=== PATIENT | male | born 1970 | race Caucasian/White ===

== ENCOUNTER 2017-12-27 13:55 | Emergency (ER) | payer MEDICAID, SELFPAY | END 2017-12-27 14:34 | disposition home or self-care (01) | LOC: ER 15:10 | PROVIDERS: Emergency Provider Emergency Medicine; PCP Nurse Practitioner Family | DX: S61.412A Laceration without foreign body of left hand, initial encounter (principal); W26.0XXA Contact with knife, initial encounter; Y93.G1 Activity, food preparation and clean up; Z53.29 Procedure and treatment not carried out because of patient's decision for other reasons | CPT/HCPCS: 99281 ==

== ENCOUNTER 2018-02-11 11:09 | Emergency (ER) | payer MEDICAID, SELFPAY ==
[2018-02-11 11:11] VITALS: BP 123/74; PULSE 72; RESP 14; TEMP 37; O2SAT 94
--- NOTE | 2018-02-11 12:01 | ED.GENADUL_ITS ---
Discharge Plan Disposition Patient Disposition: HOME Condition: Stable Discharge Details Chief Complaint: Nk/Back Pain Clinical Impression: Muscular torticollis, Viral pharyngitis Primary Care Provider: Leah Lyman ED Provider: Peter Brown Home Meds and New Rx's Prescriptions: New cyclobenzaprine 10 mg tablet 10 mg PO TID Qty: 12 RF: 0 Continue methadone 10 MG/ML concentrate 20 mg PO DAILY RF: 0 amitriptyline 25 MG tablet 50 mg PO HS RF: 0 Discharge Instructions Instructions: Pharyngitis (ED), Spasmodic Torticollis (ED) Additional Instructions: Feel free to return to the emergency department for any new or worsening otherwise follow-up with your primary care provider if not improving over the next week. He may continue to use [id number] ibuprofen 600 mg every 6 hours as needed for pain control. Stand Alone Forms: Work Release Referrals: Leah Lyman [Primary Care Provider] - (if not improving in 1 week) Discharge Data Discharge Date/Time-TO BE ENTERED AT DEPARTURE: 02/11/18 12:20 Medical Decision Making Patient presenting to the emergency department for chief complaint of right- sided neck pain that is been going on for the last 3 weeks. Patient states that he woke up one morning and had neck stiffness. Patient does state that a while ago he did have cold-like symptoms which fully resolved except for a mild lingering sore throat. Patient denies any fever chills or other symptoms. Patient is stable with mild erythematous posterior pharynx, and findings consistent with torticollis of the right side. 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 Patient has no midline vertebral tenderness no step-off no other acute traumatic findings. I feel that this is more likely traumatic torticollis and post viral pharyngitis. Patient recommended to take 600 mg of ibuprofen every 6 hours as needed for pain control and prescribed Flexeril as needed for muscular spasm or tension. Patient to follow-up with primary care if not improved in the next week HPI General Mode of arrival: ambulatory . Date/Time Provider Initiated Documentation: 02/11/18 11:33 . Limitations to Documentation: no limitations . Information obtained by: patient . History of Present Illness 47 year old M presents to the emergency department with the chief complaint of right sided neck pain, described as moderate, with intensity rated at 6. Quality is described as aching and sharp, and is localized to the right. Patient extremity (right shoulder). Patient started experiencing this week(s) (3) and it has been other (Waxing and waning). No relieving factors improve symptom(s), Patient notes no other symptoms.. Patient did receive the following treatments prior to arrival, NSAID Related Data Home Medications Medication Instructions Recorded Confirmed methadone 20 mg PO DAILY 07/07/15 02/11/18 amitriptyline 50 mg PO HS 10/31/17 02/11/18 cyclobenzaprine 10 mg PO TID #12 tab 02/11/18 Previous Rx's Medication Instructions Recorded cyclobenzaprine 10 mg PO TID #12 tab 02/11/18 Allergies Allergy/AdvReac Type Severity Reaction Status Date / Time codeine Allergy Skin Rash Unverified 02/11/18 11:16 General Stated Complaint: Nk/Back Pain ADALBERTO: 4 Review of Systems Constitutional Denies chills, Denies fever(s) and Denies headache(s) Eyes Denies change in vision ENT Denies headache(s), Reports neck pain and Reports sore throat Cardiovascular Denies chest pain and Denies dyspnea Respiratory Denies dyspnea Musculoskeletal Reports as per HPI, Denies back pain and Reports neck pain Neurologic Denies headache(s) [facility] Medical History Hepatitis C (Chronic) Kidney stones (Chronic) Social History Smoking/Tobacco Use Status: Current every day Exam Const General: cooperative, healthy appearing and no acute distress Orientation: alert, awake and oriented x3 HENMT Head: normal to inspection, no palpable skull fracture, normocephalic and atraumatic Ears: hearing grossly normal bilaterally Mouth: oral mucosae normal Throat: posterior oropharynx normal and tonsils normal Eyes General: appearance normal, both eyes and all related structures Pupils: PERRL Neck Neck: full ROM, no lymphadenopathy, no meningeal signs, trachea midline, supple , no anterior neck swelling and torticollis (right) Carotids: normal carotid upstroke and no bruits Lymphatic: no lymphadenopathy noted Resp Effort & Inspection: normal respiratory effort and able to speak in complete sentences Auscultation: clear to auscultation bilaterally Cardio Jugular venous pressure: no JVD Rate: regular rate Rhythm: regular rhythm Heart Sounds: S1 normal and S2 normal Back/Spine/Pelvis Cervical Spine: normal cervical lordosis, cervical ROM normal, cervical muscular tenderness (right), pain with cervical ROM, No cervical spasm, No cervical spinal tenderness and No step off deformity Neuro General: alert, awake, oriented x3, gait normal, tone normal, moves all extremities, no meningeal signs, no focal motor deficits and CN's II-XI intact bilaterally Course Vital Signs Temperature 37.0 C 02/11/18 11:11 Pulse 72 02/11/18 11:11 Respiratory Rate 14 02/11/18 11:11 Blood Pressure 123/74 02/11/18 11:11 Pulse Oximetry 94 L 02/11/18 11:11 Temperature 37.0 C 02/11/18 11:11 Temperature Source Temporal Artery Scan 02/11/18 11:11 Pulse 72 02/11/18 11:11 Respiratory Rate 14 02/11/18 11:11 Respiratory Effort Non-Labored 02/11/18 11:14 Blood Pressure 123/74 02/11/18 11:11 Blood Pressure Position Sitting 02/11/18 11:11 Pulse Oximetry 94 L 02/11/18 11:11 Oxygen Delivery Method Room Air 02/11/18 11:11 Oxygen Flow Rate 0 02/11/18 11:11 Pain Level 4 02/11/18 11:15
== END 2018-02-11 12:20 | disposition home or self-care (01) ==
PROVIDERS: Emergency Provider Nurse Practitioner Family; PCP Nurse Practitioner Family
DX: G24.3 Spasmodic torticollis (principal); J02.8 Acute pharyngitis due to other specified organisms
CPT/HCPCS: 99283

== ENCOUNTER 2018-03-23 09:39 | Outpatient (REF) | payer MEDICAID, SELFPAY ==
[2018-03-26 15:10] LABS: Testosterone, Free 0.91 ng/dL (4.26-16.4); Testosterone, Total 65 ng/dL (240-950)
== END 2018-03-23 09:59 ==
LOC: NCHCN 09:39
PROVIDERS: PCP Nurse Practitioner Family; Visit Provider Nurse Practitioner Family
DX: E29.1 Testicular hypofunction (principal)
CPT/HCPCS: 84402; 84403

== ENCOUNTER 2018-04-23 13:19 | Emergency (ER) | payer MEDICAID, SELFPAY ==
[2018-04-23 13:38] VITALS: BP 117/67; PULSE 80; RESP 16; TEMP 36.8; O2SAT 95
[2018-04-23] MEDS: Lidocaine 5% Patch 1 PATCH TP (14:34)
[2018-04-23] MEDS: Ibuprofen 600 MG TAB PO (14:34)
[2018-04-23] MEDS: Acetaminophen 500 MG TAB 1000 MG PO (14:34)
--- NOTE | 2018-04-23 14:42 | ED.GENADUL_ITS ---
Discharge Plan Disposition Patient Disposition: HOME Condition: Stable Discharge Details Chief Complaint: Orthopedic Clinical Impression: Strain of right quadriceps muscle Primary Care Provider: Leah Lyman ED Provider: Peter Brown Home Meds and New Rx's Prescriptions: Continued methadone 10 MG/ML concentrate 30 mg PO DAILY RF: 0 testosterone cypionate 200 mg/mL Kit 200 mg IM Q2W RF: 0 amitriptyline 25 MG tablet 50 mg PO HS RF: 0 Discharge Instructions Instructions: Muscle Strain (ED) Additional Instructions: Rest over the next couple days and slowly advance activity as tolerated. You may continue to use acetaminophen 1000 mg along with ibuprofen 600 mg every 6 hours as needed for pain. If lidocaine patch is effective you may also utilize [id number] lidocaine patch just use as directed on package. Feel free to return to the emergency department for any new or significant worsening of symptoms. Stand Alone Forms: Work Release Referrals: Leah Lyman [Primary Care Provider] - (As needed for reassessment if not improving over the 2 weeks) Discharge Data Discharge Date/Time-TO BE ENTERED AT DEPARTURE: 04/23/18 14:49 Medical Decision Making Patient presenting to the emergency department for chief complaint of right leg pain. Patient states that yesterday evening and throughout the day he has noted significant discomfort to his right thigh. Patient initially denies any injury or trauma but then states prior to noticing the discomfort he had a near fall which he caught himself and did kind of leaning towards the right during the fall. Physical exam is positive for muscular/soft tissue tenderness to the lateral proximal aspect of the right thigh but no bony tenderness, patient is full weightbearing, normal range of motion, no other abnormalities noted. Given this I feel that patient may have strained the right quadricep causing discomfort. In the emergency department patient was given lidocaine patch, acetaminophen, ibuprofen. patient was encouraged to rest the extremity and perform activity as tolerated and take [id number] pain medication as needed. Patient to return for any new or worsening symptoms otherwise to follow-up as needed. After discussion of diagnosis and plan of care patient has no further needs, questions, or concerns and states clear understanding to return to the emergency department for any worsening symptoms. HPI General Mode of arrival: ambulatory . Date/Time Provider Initiated Documentation: 04/23/18 13:31 . Limitations to Documentation: no limitations . Information obtained by: patient and RN notes reviewed . History of Present Illness 48 year old M presents to the emergency department with the chief complaint of Right thigh pain, described as moderate, with intensity rated at 6. Quality is described as aching, and is localized to the right and lower extremity. Patient started experiencing this day(s) (1) and it has been constant. No relieving factors improve symptom(s), Movement worsens symptoms . Patient notes no other symptoms.. Patient did receive the following treatments prior to arrival, none Related Data Home Medications Medication Instructions Recorded Confirmed methadone 30 mg PO DAILY 07/07/15 04/23/18 amitriptyline 50 mg PO HS 10/31/17 04/23/18 testosterone cypionate 200 mg IM Q2W 04/23/18 04/23/18 Allergies Allergy/AdvReac Type Severity Reaction Status Date / Time codeine Allergy Skin Rash Unverified 04/23/18 13:43 General Stated Complaint: Orthopedic ADALBERTO: 4 Review of Systems Constitutional Denies body ache(s), Denies chills and Denies fever(s) Cardiovascular Denies chest pain and Denies dyspnea Respiratory Denies dyspnea Gastrointestinal Denies abdominal pain, Denies nausea and Denies vomiting Musculoskeletal Reports as per HPI, Reports myalgias (Right upper thigh), Denies limited range of motion, Denies stiffness and Denies tingling Integumentary/Breasts Denies rash Neurologic Denies sensory deficit and Denies tingling PFSH Medical History Hepatitis C (Chronic) Kidney stones (Chronic) Social History Smoking/Tobacco Use Status: Current every day Exam Const General: cooperative, no acute distress and not ill appearing Orientation: alert, awake and oriented x3 HENMT Mouth: moist mucous membranes Resp Effort & Inspection: normal respiratory effort, able to speak in complete sentences and no respiratory distress Cardio Rate: regular rate Rhythm: regular rhythm Skin General skin exam: no rashes or lesions noted Neuro General: alert, awake, oriented x3, moves all extremities and no focal motor deficits Sensory Exam: no sensory deficits noted Extrem General: normal exam except as noted Right lower extremity: full ROM, normal capillary refill, hip/thigh Details: tenderness Location: of the proximal upper leg Location: laterally and normal ROM; no swelling, no ecchymosis and no crepitus and knee Details: normal to inspection; no edema Course Vital Signs Temperature 36.8 C 04/23/18 13:38 Pulse 80 04/23/18 13:38 Respiratory Rate 16 04/23/18 13:38 Blood Pressure 117/67 04/23/18 13:38 Pulse Oximetry 95 04/23/18 13:38 Temperature 36.8 C 04/23/18 13:38 Temperature Source Skin 04/23/18 13:38 Pulse 80 04/23/18 13:38 Respiratory Rate 16 04/23/18 13:38 Respiratory Effort 04/23/18 13:42 Blood Pressure 117/67 04/23/18 13:38 Blood Pressure Position Sitting 04/23/18 13:38 Pulse Oximetry 95 04/23/18 13:38 Oxygen Delivery Method Room Air 04/23/18 13:38 Oxygen Flow Rate 0 04/23/18 13:38 Pain Level 4 04/23/18 14:34
== END 2018-04-23 14:49 | disposition home or self-care (01) ==
PROVIDERS: Emergency Provider Nurse Practitioner Family; PCP Nurse Practitioner Family
DX: S76.111A Strain of right quadriceps muscle, fascia and tendon, initial encounter (principal); X50.9XXA Other and unspecified overexertion or strenuous movements or postures, initial encounter
CPT/HCPCS: 99282

== ENCOUNTER 2018-05-07 07:50 | Outpatient (REF) | payer MEDICAID, SELFPAY ==
[2018-05-10 17:45] LABS: Testosterone, Free 20.7 ng/dL (4.26-16.4); Testosterone, Total 739 ng/dL (240-950)
== END 2018-05-07 08:10 ==
LOC: NCHCN 07:50
PROVIDERS: PCP Nurse Practitioner Family; Visit Provider Nurse Practitioner Family
DX: E29.1 Testicular hypofunction (principal)
CPT/HCPCS: 84402; 84403

== ENCOUNTER 2018-09-19 09:45 | Emergency (ER) | payer MEDICAID, SELFPAY ==
[2018-09-19 09:50] VITALS: BP 133/84; PULSE 75; RESP 16; TEMP 37.1; O2SAT 94
--- NOTE | 2018-09-19 09:56 | ED.GENADUL_ITS ---
Discharge Plan Disposition Patient Disposition: HOME Discharge Details Chief Complaint: Abd Prob Clinical Impression: Abdominal pain, acute, right upper quadrant, Bilirubin in urine Primary Care Provider: Leah Lyman ED Provider: Geovany Lovett Home Meds and New Rx's Prescriptions: New naloxone 4 mg/actuation spray,non-aerosol 1 spray NGOZI ONCE PRN (Reason: overdose) Qty: 2 RF: 0 Continued methadone 10 MG/ML concentrate 30 mg PO DAILY RF: 0 testosterone cypionate 200 mg/mL Kit 200 mg IM Q2W RF: 0 amitriptyline 25 MG tablet 50 mg PO HS RF: 0 Discharge Instructions Additional Instructions: Please contact your primary care physician or community connections to establish a new primary care physician. You may need additional diagnostic testing and certainly need treatment for your hepatitis C. Please stop using opioids. Return to the ER for any worsening or new concerning symptoms. Stand Alone Forms: Work Release Referrals: Leah Lyman [Primary Care Provider] - Medical Decision Making 10:34 --48-year-old male IV drug user with history of hepatitis C here with right lateral lower chest and upper abdominal pain, worse with inspiration, since this morning with associated dark-colored urine. Bedside afplo-wg-[id number] ultrasound performed by me and reveals hepatomegaly. No gallstones seen. Plan to obtain official abdominal ultrasound. We will check LFTs and lipase. Consider pulmonary embolism. Patient has no calf tenderness. He is not tachycardic. He saturating 94 to 95% with no SOB. Patient is low risk by Wells criteria. Plan to check a d-dimer. 12:15 --labs reviewed and nondiagnostic. Of note, patient does have some ketones and small bilirubin in his urine. No anion gap. Glucose only mildly elevated at 112. AST mildly elevated at 43. Total bilirubin normal, ALT normal, alk phos normal. D-dimer within normal limit. Chest x-ray interpreted by radiology: Impression: No acute findings Ultrasound of the abdomen interpreted by radiology: Impression: Hepatomegaly 17.8 cm. Patient reassessed and has remained stable here. Plan is to have him follow-up with primary care physician. He is interested in establishing primary care with a new PCP. I will put him on care management list. Patient should have timely follow-up arranged for referral and discussion for potential treatment of chronic hepatitis C. He is interested in pursuing treatment as soon as possible. Patient was encouraged to not use illicit substances. We discussed the risks of using opioids. I provided a prescription for naloxone. We discussed the importance of timely follow-up and need to return immediately for worsening or new concerning symptoms. HPI General Date/Time Provider Initiated Documentation: 09/19/18 09:50 . HPI Narrative: 48-year-old male with history of hepatitis C, IV drug use, here with chief complaint of abdominal pain. Patient notes pain started this morning. Pain started suddenly. Pain feels sore and at times sharp. Pain is localized to his right upper abdomen and under his right lower ribs. Pain is worse with deep inspiration. No associated shortness of breath. No associated nausea or vomiting. He does note that this morning he had some very dark red-colored urine. He has never had this before. He has noticed recently bilateral distal leg swelling. No calf pain. No calf swelling. Patient does state that he used IV heroin yesterday. He does not believe he lost consciousness for any significant period of time. No trauma. Related Data Home Medications Medication Instructions Recorded Confirmed methadone 30 mg PO DAILY 07/07/15 09/19/18 amitriptyline 50 mg PO HS 10/31/17 09/19/18 testosterone cypionate 200 mg IM Q2W 04/23/18 09/19/18 naloxone 1 spray NGOZI ONCE PRN #2 each 09/19/18 Previous Rx's Medication Instructions Recorded naloxone 1 spray NGOZI ONCE PRN #2 each 09/19/18 Allergies Allergy/AdvReac Type Severity Reaction Status Date / Time codeine Allergy Skin Rash Unverified 09/19/18 09:52 General Stated Complaint: Abd Prob ADALBERTO: 3 Review of Systems Review of Systems All systems reviewed & are unremarkable except as noted in HPI and below PFSH Medical History Hepatitis C (Chronic) Kidney stones (Chronic) Social History Smoking/Tobacco Use Status: Current every day Tobacco Type: cigarettes Alcohol Intake: current Alcohol Intake frequency: a few times a week Drug use: Daily Substance use type: marijuana Do you feel safe in your relationship?: Yes Exam Const General: cooperative and no acute distress HENMT Head: normocephalic Mouth: moist mucous membranes Eyes Conjunctivae: normal conjunctivae Sclera: normal sclerae Neck Neck: trachea midline and supple Resp Auscultation: clear to auscultation bilaterally, no rales, no rhonchi and no wheezes Cardio Jugular venous pressure: no JVD Rate: regular rate and not tachycardic Rhythm: regular rhythm GI Palpation: soft, not firm, no guarding, no masses, not rigid and nontender Skin General skin exam: no rashes or lesions noted Neuro General: alert, awake and tone normal Extrem General: no calf tenderness bilaterally and edema Laterality: bilateral (Trace about the ankles) Psych Appearance: grossly normal Mental Status: mental status grossly normal Course Vital Signs Temperature 37.1 C 09/19/18 09:50 Pulse 75 09/19/18 09:50 Respiratory Rate 16 09/19/18 09:50 Blood Pressure 133/84 09/19/18 09:50 Pulse Oximetry 92 L 09/19/18 09:50 Temperature 37.1 C 09/19/18 09:50 Temperature Source Skin 09/19/18 09:50 Pulse 75 09/19/18 09:50 Respiratory Rate 16 09/19/18 09:50 Respiratory Effort Non-Labored 09/19/18 09:54 Blood Pressure 133/84 09/19/18 09:50 Pulse Oximetry 92 L 09/19/18 09:50 Pain Level 9 09/19/18 09:50
[2018-09-19 10:20] LABS: Bilirubin Small (Negative); Blood Negative (Negative); Clarity Clear; Glucose Negative (Negative); Ketones 40 mg/dL (Negative); Leukocyte Esterase Negative (Negative); Specific Gravity >= 1.030 (1.005-1.025)
--- NOTE | 2018-09-19 10:22 | DI.US_ITS ---
SYMPTOMS/DIAGNOSIS: RUQ ABD PAIN, HEP C ABDOMINAL ULTRASOUND: Routine examination was performed. The proximal and mid aorta are of normal caliber. The distal aorta can not be seen due to overlying bowel. The inferior vena cava is unremarkable. The liver measures 17.8 cm. No hepatic mass is seen. The gallbladder, common duct and pancreas are unremarkable. The spleen measures 12 cm and is otherwise unremarkable. The kidneys are unremarkable. There is antegrade flow in the portal vein. IMPRESSION: Hepatomegaly. No evidence of cholelithiasis or biliary ductal dilatation.
[2018-09-19 10:23] LABS: Nitrite Negative (Negative)
[2018-09-19 10:33] LABS: Bacteria Negative HPF (Negative); C & S Indicated? No; Casts Negative LPF (Negative); Crystals Negative HPF (Negative); Epithelial Cells Few HPF (Negative); Mucus Heavy (Negative); RBC 0-2 (0-2); WBC 0-2 HPF (0-5)
[2018-09-19 10:42] LABS: Abs Immature Grans 0.01 k/cumm (0.0-0.09); Absolute Basophil Count 0.02 k/cumm (0.0-0.2); Absolute Eosinophil Count 0.16 k/cumm (0.0-0.7); Absolute Lymphocyte Count 1.04 k/cumm (1.2-3.4); Absolute Monocyte Count 0.44 k/cumm (0.11-0.7); Absolute Neutrophil Count 4.89 k/cumm (1.2-6.7); Basophils % 0.3; Eosinophils % 2.4; HCT 49.8 % (40.0-50.0); HGB 16.2 g/dL (13.5-17.5); Immature Grans % 0.2; Lymphocytes % 15.9; Mean Corp. HGB Concentration 32.5 g/dL (32.0-36.0); Mean Corpuscular Hemoglobin 29.2 pg (27.0-33.0); Mean Corpuscular Volume 89.7 fL (80-95); Mean Platelet Volume 8.9 fL (8.0-11.0); Monocytes % 6.7; Neutrophils % 74.5; Platelet Count 310 x1000/uL (130-400); RBC 5.55 m/cumm (4.50-6.00); RBC Distribution Width 16.2 % (11.8-14.1); White Blood Cell Count 6.56 k/cumm (4.4-10.8)
[2018-09-19] MEDS: Lactated Ringers 1,000 ML 125 ML IV (10:42)
[2018-09-19 11:01] LABS: ALT 48 U/L (12-78); AST 43 U/L (15-37); Albumin 3.7 g/dL (3.4-5.0); Alkaline Phosphatase 67 U/L (46-116); Anion Gap 7.7 mmol/L (3-11); BUN 13 mg/dL (7-18); Bilirubin, Total 0.9 mg/dL (0.2-1.0); CO2 28.3 mmol/L (21.0-32.0); CREATININE 1.17 mg/dL (0.70-1.30); Chloride 102 mmol/L (98-107); Glucose 112 mg/dL (70-100); Lipase 110 U/L (73-393); Potassium 4.3 mmol/L (3.5-5.1); Sodium 138 mmol/L (136-145); Total Protein 7.7 g/dL (6.4-8.2)
--- NOTE | 2018-09-19 11:12 | DI.RAD_ITS ---
SYMPTOMS/DIAGNOSIS: PAIN RT SUBCOSTAL PA AND LATERAL CHEST: Comparison 10/23/04. The heart is normal in size. The lungs are clear. The mediastinal structures and pleura appear intact. CONCLUSION: Normal chest.
--- NOTE | 2018-09-19 11:42 | DI.VRAD_ITS ---
EXAM: XR Chest, 2 Views EXAM DATE/TIME: 09/19/2018 10:26 AM CLINICAL HISTORY: 48 years old, male; Other: RT sub costal pain. TECHNIQUE: Imaging protocol: XR of the chest, 2 views. COMPARISON: No relevant prior studies available. FINDINGS: Lungs: Unremarkable. No consolidation. Pleural space: Unremarkable. No pleural effusion. No pneumothorax. Heart/Mediastinum: Unremarkable. No cardiomegaly. Bones/joints: Unremarkable. IMPRESSION: No acute findings. Dictated and Authenticated by: Codie Miller MD. Ordering:MARIA LUISA Armenta MD
--- NOTE | 2018-09-19 11:44 | DI.VRAD_ITS ---
EXAM: US Abdomen Complete EXAM DATE/TIME: 09/19/2018 11:11 AM CLINICAL HISTORY: 48 years old, male; Signs and symptoms; Other: Ruq pain TECHNIQUE: Imaging protocol: Real-time ultrasound of the abdomen with image documentation. COMPARISON: No relevant prior studies available. FINDINGS: Liver: Hepatomegaly 17.8 cm. Gallbladder: Gallbladder wall 1.8 mm. No gallstones Common bile duct: Common bile duct measures 5.8 mm Pancreas: Visualized pancreas is unremarkable. Right kidney: Right kidney 11.5 cm. No hydronephrosis. Left kidney: Left kidney 12.1 cm. No hydronephrosis Spleen: Spleen 12 cm. Aorta: Proximal aorta 2.8 cm. Mid aorta 2.4 cm Inferior vena cava: Normal IVC Portal venous: Antegrade flow in the portal vein IMPRESSION: Hepatomegaly 17.8 cm. Dictated and Authenticated by: Codie Miller MD. Ordering:MARIA LUISA Armenta MD
[2018-09-19 11:52] LABS: D-Dimer 297 ng/mlFEU (<500)
[2018-09-19 12:36] VITALS: PULSE 74; RESP 16; TEMP 37.4; O2SAT 98
== END 2018-09-19 12:38 | disposition home or self-care (01) ==
PROVIDERS: Emergency Provider Student in an Organized Health Care Education/Training Program; PCP Nurse Practitioner Family
DX: R10.11 Right upper quadrant pain (principal); R16.0 Hepatomegaly, not elsewhere classified; R82.2 Biliuria; Z86.19 Personal history of other infectious and parasitic diseases
CPT/HCPCS: 80053; 83690; 99285; 71046; 76700; 81003; 81015; 85025; 85379

== ENCOUNTER 2018-09-26 08:10 | Emergency (ER) | payer MEDICAID, SELFPAY ==
[2018-09-26 08:19] VITALS: BP 145/88; PULSE 69; RESP 16; TEMP 37.1; O2SAT 93
--- NOTE | 2018-09-26 08:51 | DI.RAD_ITS ---
SYMPTOM/DIAGNOSIS: CHRONIC RIB PAIN, COUGH, ? FX PA AND LATERAL CHEST AND RIGHT RIBS: PA and lateral views of the chest and additional rib films were obtained. The heart is not enlarged and the lungs are clear and well expanded. No rib fracture identified.
--- NOTE | 2018-09-26 08:52 | W.ED.GENAD ---
Discharge Plan Disposition Patient Disposition: HOME Condition: Stable Discharge Details Chief Complaint: Chest/Rib Clinical Impression: Chest wall muscle strain, Rib pain on right side Primary Care Provider: Leah Lyman ED Provider: Lorrie Hand Home Meds and New Rx's Prescriptions: Continued methadone 10 MG/ML concentrate 30 mg PO DAILY RF: 0 testosterone cypionate 200 mg/mL Kit 200 mg IM Q2W RF: 0 amitriptyline 25 MG tablet 50 mg PO HS RF: 0 naloxone 4 mg/actuation spray,non-aerosol 1 spray NGOZI ONCE PRN (Reason: overdose) Qty: 2 RF: 0 Discharge Instructions Instructions: Muscle Strain (ED), Chest Wall Pain (ED) Additional Instructions: Alternate Tylenol and Motrin as needed directed for pain. Alternate ice and heat to the affected area several times daily for 20 minutes at a time. Follow-up with your primary care doctor next week for reevaluation. Return to the emergency department with any worsening or new concerning symptoms such as difficulty breathing, chest pain, abdominal pain or any other concerns. Stand Alone Forms: Work Release Discharge Data Discharge Physician: Lorrie Hand Medical Decision Making 48yo M w/ a h/o methadone use and occasional IV drug user who presents w/ a c/o R inferolateral rib pain x 1 week. States the pain is worse with palpation and any movement. Denies known injury, chest pain, sob, abdominal pain, fever or persistent vomiting. He states he is here today to determine if he has a rib fracture as he felt a crunching sensation in his R lower rib when turning and getting out of bed today. Admits to frequent heavy pushing and pulling at work yesterday. Pt was seen here last week for RUQ abd pain and had negative labs, RUQ US and CXR. Vitals within normal limits. Afebrile. Patient appears nontoxic. Lungs clear to auscultation. Abdomen soft nontender. He has a localized area of tenderness to the right lateral inferior ribs. No evidence of rash, trauma or infection. Differential diagnosis most likely rib strain or sprain, but can also include possible rib fracture due to chronic coughing due to chronic tobacco smoking. Suspect his symptoms worse today due to frequent pushing and pulling of carts at work yesterday. Denies tearing sensation or difficulty breathing so not c/w dissection or PE. PERC negative. Patient took Advil 1 hour ago. Will give a dose of Tylenol and send for right ribs and PA/lateral chest x-ray. 1020 --x-ray reviewed and negative for acute findings. Patient texting on phone leaning over on bed and appears in no acute distress. Patient is requesting work note for the next few days. Patient instructed to follow-up with his primary care doctor next week for reevaluation. He is instructed to return here with any worsening or new concerning symptoms such as difficulty breathing, chest pain, abdominal pain. Medical Records Medical records reviewed: Yes I reviewed the patient's medical records. Imaging Data Radiologic Study: Radiologist's impression: XR Right Ribs EXAM DATE/TIME: 09/26/2018 8:52 AM CLINICAL HISTORY: 48 years old, male; Signs and symptoms; Other: Pkwvbk2t rib coughing, R/O acute FX R lower ribs; Painful respiration TECHNIQUE: Imaging protocol: XR Right ribs. Views: 2 views. COMPARISON: CR XR CHEST 2V PA LATERAL 09/19/2018 11:11 AM FINDINGS: Bones/joints: Normal. Soft tissues: Normal. Other findings: No acute findings. IMPRESSION: No acute findings. XR Chest, 2 Views EXAM DATE/TIME: 09/26/2018 8:52 AM CLINICAL HISTORY: 48 years old, male; Signs and symptoms; Other: Rozmea8c rib coughing, R/O acute FX R lower ribs; Painful respiration TECHNIQUE: Imaging protocol: XR of the chest, 2 views. COMPARISON: CR XR CHEST 2V PA LATERAL 09/19/2018 11:11 AM FINDINGS: Lungs: Moderately hyperaerated lungs consistent with deep inspiratory effort vs significant reactive airway disease vs moderate COPD . Pleural space: Unremarkable. No pleural effusion. No pneumothorax. Heart/Mediastinum: Unremarkable. No cardiomegaly. Bones/joints: Thoracolumbar dextroscoliosis. Mild thoracic spondylosis. IMPRESSION: Moderately hyperaerated lungs consistent with deep inspiratory effort vs significant reactive airway disease vs moderate COPD . HPI General Mode of arrival: ambulatory. Date/Time Provider Initiated Documentation: 09/26/18 08:22. Limitations to Documentation: no limitations. Information obtained by: patient. HPI Narrative: Pt is a 48yo M who presents to the ED w/ a c/o R lateral lower rib pain for the past week. Pt was seen here 1 week ago for a complaint of right lower rib pain and right upper quadrant pain. Patient states he thought that he broke his rib last week but denies any known injury. Patient states he has a chronic cough that is associated with his chronic tobacco smoking. He states last week he was seen in the emergency department for his right lower rib and right upper quadrant abdominal pain and had lab work, ultrasound and x-ray and states he was poked and prodded and was told nothing was wrong with me. Patient states he wants to find out what is wrong with him as he woke up today and turned and got out of bed and felt something move and crunch and is concerned about a right lower rib fracture. He again denies any recent injury. 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 He denies any fever, anterior chest pain, shortness of breath, abdominal pain. Patient states he took 2 tabs of Advil this morning for pain. Patient states he works today and is requesting a work note. Related Data Home Medications Medication Instructions Recorded Confirmed methadone 30 mg PO DAILY 07/07/15 09/26/18 amitriptyline 50 mg PO HS 10/31/17 09/26/18 testosterone cypionate 200 mg IM Q2W 04/23/18 09/26/18 naloxone 1 spray NGOZI ONCE PRN #2 each 09/19/18 09/26/18 Previous Rx's Medication Instructions Recorded naloxone 1 spray NGOZI ONCE PRN #2 each 09/19/18 Allergies Allergy/AdvReac Type Severity Reaction Status Date / Time codeine Allergy Skin Rash Unverified 09/26/18 08:23 General Stated Complaint: Chest/Rib ADALBERTO: 4 Review of Systems Review of Systems All systems reviewed & are unremarkable except as noted in HPI and below Constitutional Reports as per HPI, Denies chills and Denies fever(s) Eyes Denies blurry vision ENT Denies dizziness, Denies sore throat and Denies throat swelling Cardiovascular Denies chest pain and Denies dyspnea Respiratory Denies cough and Denies dyspnea Gastrointestinal Denies abdominal pain, Denies diarrhea and Denies vomiting Genitourinary Denies hematuria and Denies dysuria Musculoskeletal Denies back pain, Denies numbness and Reports other (R rib pain) Integumentary/Breasts Denies lesions and Denies rash Neurologic Denies dizziness, Denies focal weakness and Denies numbness Allergic/Immunologic Denies throat swelling [facility] Medical History Hepatitis C (Chronic) Kidney stones (Chronic) Surgical History Broken jaw (Acute) Social History Smoking/Tobacco Use Status: Current every day Tobacco Type: cigarettes Alcohol Intake: current Alcohol Intake frequency: a few times a week Drug use: Daily Substance use type: marijuana and other Details: occasional IV drug user - last use heroin 2 weeks ago Do you feel safe in your relationship?: Yes Exam Const General: cooperative, healthy appearing and no acute distress HENMT Head: normal to inspection Face and sinus: normal facial exam Eyes General: appearance normal, both eyes and all related structures EOM: EOM intact bilaterally Neck Neck: normal visual inspection and No submandibular swelling Lymphatic: no lymphadenopathy noted Chest Chest: normal inspection of the chest, no crepitus, tenderness (R anteriolateral inferior rib), No rash and other (no ecchymoses) Resp Effort & Inspection: normal respiratory effort and able to speak in complete sentences Auscultation: clear to auscultation bilaterally Cardio Rate: regular rate Rhythm: regular rhythm GI Inspection: normal to inspection and no abdominal wall ecchymosis Palpation: soft, not firm, not rigid and nontender Auscultation: normal bowel sounds Skin General skin exam: no rashes or lesions noted Neuro General: alert, awake and oriented x3 Cognition: normal cognition Speech: speech normal Motor: muscle tone normal throughout Sensory Exam: no sensory deficits noted Extrem General: normal to inspection, full ROM and no edema Psych Appearance: grossly normal Mental Status: mental status grossly normal Speech and Movement: speech and movement normal Affect: normal affect Course Vital Signs Temperature 98.8 F 09/26/18 08:19 Pulse 69 09/26/18 08:19 Respiratory Rate 16 09/26/18 08:19 Blood Pressure 145/88 H 09/26/18 08:19 Pulse Oximetry 93 L 09/26/18 08:19 Temperature 98.8 F 09/26/18 08:19 Pulse 69 09/26/18 08:19 Respiratory Rate 16 09/26/18 08:19 Respiratory Effort Non-Labored 09/26/18 08:19 Blood Pressure 145/88 H 09/26/18 08:19 Blood Pressure Position Sitting 09/26/18 08:19 Pulse Oximetry 93 L 09/26/18 08:19 Oxygen Delivery Method Room Air 09/26/18 08:19 Oxygen Flow Rate 0 09/26/18 08:19 Pain Level 5 09/26/18 08:19
[2018-09-26] MEDS: Acetaminophen 325 MG TAB 650 MG PO (09:00)
--- NOTE | 2018-09-26 09:59 | DI.VRAD_ITS ---
EXAM: XR Right Ribs EXAM DATE/TIME: 09/26/2018 8:52 AM CLINICAL HISTORY: 48 years old, male; Signs and symptoms; Other: Usftrm4i rib coughing, R/O acute FX R lower ribs; Painful respiration TECHNIQUE: Imaging protocol: XR Right ribs. Views: 2 views. COMPARISON: CR XR CHEST 2V PA LATERAL 09/19/2018 11:11 AM FINDINGS: Bones/joints: Normal. Soft tissues: Normal. Other findings: No acute findings. IMPRESSION: No acute findings. EXAM: XR Chest, 2 Views EXAM DATE/TIME: 09/26/2018 8:52 AM CLINICAL HISTORY: 48 years old, male; Signs and symptoms; Other: Fcbdow3i rib coughing, R/O acute FX R lower ribs; Painful respiration TECHNIQUE: Imaging protocol: XR of the chest, 2 views. COMPARISON: CR XR CHEST 2V PA LATERAL 09/19/2018 11:11 AM FINDINGS: Lungs: Moderately hyperaerated lungs consistent with deep inspiratory effort vs significant reactive airway disease vs moderate COPD . Pleural space: Unremarkable. No pleural effusion. No pneumothorax. Heart/Mediastinum: Unremarkable. No cardiomegaly. Bones/joints: Thoracolumbar dextroscoliosis. Mild thoracic spondylosis. IMPRESSION: Moderately hyperaerated lungs consistent with deep inspiratory effort vs significant reactive airway disease vs moderate COPD . Dictated and Authenticated by: Lee Hayden MD. Ordering:TIEN Andrew MD
[2018-09-26 10:40] VITALS: BP 141/82; PULSE 62; RESP 20; TEMP 36.8; O2SAT 96
== END 2018-09-26 10:44 | disposition home or self-care (01) ==
PROVIDERS: Emergency Provider Physician Assistant; PCP Nurse Practitioner Family
DX: S29.011A Strain of muscle and tendon of front wall of thorax, initial encounter (principal); R07.81 Pleurodynia; X58.XXXA Exposure to other specified factors, initial encounter; R05 Cough; F17.210 Nicotine dependence, cigarettes, uncomplicated
CPT/HCPCS: 99283; 71046; 71100; 99282

== ENCOUNTER 2020-03-01 10:25 | Emergency (ER) | payer MEDICAID, SELFPAY ==
[2020-03-01 10:29] VITALS: BP 124/88; PULSE 64; RESP 15; TEMP 37.4; O2SAT 98
--- NOTE | 2020-03-01 10:50 | ED.GENADUL_ITS ---
Discharge Plan Disposition Patient Disposition: HOME Condition: Stable Discharge Details Clinical Impression: Dental infection Primary Care Provider: Leah Lyman ED Provider: Nate Mcgee Home Meds and New Rx's Prescriptions: New amoxicillin 875 mg tablet 875 mg PO BID 10 Days Qty: 20 RF: 0 Continued methadone 10 MG/ML concentrate 30 mg PO DAILY RF: 0 testosterone cypionate 200 mg/mL Kit 200 mg IM Q2W RF: 0 amitriptyline 25 MG tablet 50 mg PO HS RF: 0 naloxone 4 mg/actuation spray,non-aerosol 1 spray NGOZI ONCE PRN (Reason: overdose) Qty: 2 RF: 0 Discharge Instructions Instructions: Dental Abscess (ED) Additional Instructions: Amoxicillin as directed. [id number] medication as directed for symptomatic control. Salt water swish, gargle, spit as tolerated. Cool and/or warm compresses every 2 hours for 20 minutes. Please watch for new or worsening symptoms and return to the ER for any concerns. Otherwise using the dentist list provided, I do recommend establishing outpatient dental care. Stand Alone Forms: Work Release Medical Decision Making 49-year-old gentleman, current smoker, poor dentition throughout, presents complaining of increased pain over the past 4 days. He is requesting antibiotics. He does not have a dentist. Clinically it appears as though he likely has a dental infection without obvious pointing abscess that requires I&D. He appears well, nontoxic, afebrile, protect his airway without difficulty. Will provide amoxicillin 875 twice daily for 10 days, dental list so he may establish outpatient dental care, and a work note for the rest today. Patient comfortable with this plan, has no additional questions or concerns. Medical Records Medical records reviewed: Yes I reviewed the patient's medical records. HPI General Mode of arrival: ambulatory . Date/Time Provider Initiated Documentation: 03/01/20 10:49 . Limitations to Documentation: no limitations . Information obtained by: patient . HPI Narrative: This is a 49-year-old gentleman, history of hepatitis C, current smoker, polysubstance abuse, now taking methadone, presents for dental pain that began over the past 4 days and worsening. Patient reports that he has poor dentition throughout, does not have a dentist. His right lower canine began chipping a year ago and progressively getting worse. Now reports severe pain, mild swelling, requesting antibiotics for his infection. He has no other concerns or complaints. Denies fever, difficulty swallowing, breathing, speaking, chest pain, shortness of breath. Related Data Home Medications Medication Instructions Recorded Confirmed methadone 30 mg PO DAILY 07/07/15 03/01/20 amitriptyline 50 mg PO HS 10/31/17 03/01/20 testosterone cypionate 200 mg IM Q2W 04/23/18 03/01/20 naloxone 1 spray NGOZI ONCE PRN #2 each 09/19/18 03/01/20 amoxicillin 875 mg PO BID 10 Days #20 tab 03/01/20 Previous Rx's Medication Instructions Recorded naloxone 1 spray NGOZI ONCE PRN #2 each 09/19/18 amoxicillin 875 mg PO BID 10 Days #20 tab 03/01/20 Allergies Allergy/AdvReac Type Severity Reaction Status Date / Time codeine Allergy Skin Rash Unverified 03/01/20 10:34 General Stated Complaint: DentalOral ADALBERTO: 4 Review of Systems Constitutional Constitutional: Denies fever(s) and Denies headache(s) ENT Ears, Nose, Mouth, and Throat: Reports facial pain, Denies headache(s), Denies lip swelling, Reports mouth pain, Denies neck pain, Denies sore throat and Denies throat swelling Cardiovascular Cardiovascular: Denies chest pain and Denies dyspnea Respiratory Respiratory: Denies cough and Denies dyspnea Musculoskeletal Musculoskeletal: Denies neck pain Integumentary/Breasts Skin/Breast: Denies erythema Neurologic Neurologic: Denies headache(s) Allergic/Immunologic Allergic/Immunologic: Denies lip swelling and Denies throat swelling [facility] Medical History Hepatitis C Kidney stones Surgical History Broken jaw Social History Smoking/Tobacco Use Status: Current every day Tobacco Type: cigarettes Smoking risk assessment performed?: Yes Alcohol Intake: former Drug use: Daily Substance use type: marijuana and other Details: occasional IV drug user - last use heroin 2 weeks ago Details: Baart--methadone Do you feel safe at home: Yes Do you feel safe in your relationship?: Yes Exam Const General: cooperative, healthy appearing, comfortable and no acute distress Orientation: alert and awake [facility] Head: normal to inspection, normocephalic and atraumatic Ears: external ears normal, TM's normal bilaterally and EAC's normal Face and sinus: face symmetric and tenderness Face images: 1. Mild discomfort without obvious swelling, fluctuance, induration or erythema Mouth: oral mucosae normal and moist mucous membranes Teeth and gingiva: poor dentition Teeth image: 1. Point tenderness. Tooth with caries and fracture. Most of his dentition is decayed to the gumline. The surrounding buccal mucosa is without erythema, swelling, pointing abscess. Throat: posterior oropharynx normal Eyes Conjunctivae: conjunctivae normal Sclera: sclerae normal Neck Neck: normal visual inspection, full ROM, no lymphadenopathy, no meningeal signs, trachea midline, supple and nontender Resp Effort & Inspection: normal respiratory effort and able to speak in complete sentences Auscultation: clear to auscultation bilaterally Cardio Rate: regular rate Rhythm: regular rhythm Skin General skin exam: no rashes or lesions noted Neuro General: patient alert, patient awake, moves all extremities and no focal motor deficits Sensory Exam: no sensory deficits noted Psych Appearance: grossly normal Mental Status: mental status grossly normal Course Vital Signs Vital signs: Vital Signs Temperature 37.4 C 03/01/20 10:29 Pulse 64 03/01/20 10:29 Respiratory Rate 15 03/01/20 10:29 Blood Pressure 124/88 03/01/20 10:29 Pulse Oximetry 98 03/01/20 10:29 Temperature 37.4 C 03/01/20 10:29 Temperature Source Temporal Artery Scan 03/01/20 10:29 Pulse 64 03/01/20 10:29 Respiratory Rate 15 03/01/20 10:29 Respiratory Effort Non-Labored 03/01/20 10:32 Blood Pressure 124/88 03/01/20 10:29 Blood Pressure Position Sitting 03/01/20 10:29 Pulse Oximetry 98 03/01/20 10:29 Oxygen Delivery Method Room Air 03/01/20 10:29 Oxygen Flow Rate 0 03/01/20 10:29 Pain Level 8 03/01/20 10:35
== END 2020-03-01 11:15 | disposition home or self-care (01) ==
LOC: ER 11:01
PROVIDERS: Emergency Provider Physician Assistant; PCP Nurse Practitioner Family
DX: R68.84 Jaw pain (principal); K04.7 Periapical abscess without sinus
CPT/HCPCS: 99283

== ENCOUNTER 2020-06-28 07:14 | Emergency (ER) | payer MEDICAID, SELFPAY ==
[2020-06-28 07:20] VITALS: BP 112/95; PULSE 61; RESP 16; TEMP 36.7; O2SAT 99
--- NOTE | 2020-06-28 07:39 | W.ED.GENAD ---
Discharge Plan Disposition Patient Disposition: AGAINST MEDICAL ADVICE Condition: Stable Discharge Details Clinical Impression: Nausea Primary Care Provider: Leah Lyman ED Provider: Lee Riddle Home Meds and New Rx's Prescriptions: New ondansetron 4 mg tablet,disintegrating 4 mg PO Q8H PRN (Reason: nausea and vomiting) Qty: 30 RF: 0 Continued methadone 10 MG/ML concentrate 60 mg PO DAILY RF: 0 naloxone 4 mg/actuation spray,non-aerosol 1 spray NGOZI ONCE PRN (Reason: overdose) Qty: 2 RF: 0 Discharge Instructions Instructions: Acute Nausea and Vomiting (ED) Additional Instructions: if you feel more ill, have persistent vomit or chest/abdominal pain return to the emergency department follow up with your primary care provider within 1 week if symptoms continue Stand Alone Forms: Work Release Medical Decision Making 50yo male with hx of prior substance abuse on methadone and states only uses marijuana no other drugs comes in with n/v since yesterday, and is improving per patient. HE denies fevers, chest pain, abdominal pain, diarrhea, travel. He has no abdominal tenderness on exam, no rashes or murmurs. Suspect food illness vs gastroenteritis but will evaluate for possible pancreatitis vs acute hepatitis and also evaluate for eledctrolyte disorders. Given lack of chest pain, dyspnea doubt acs. No abdominal tenderness to suggest sbo or other surgical pathology so do not feel ct abd/pelvis indicated Pt declining having any labs done and only wants a work note and d/c. He has the capacity to make his own decisions and understands we have not ruled out life threatening pathology and it would be my recommendation he stay for evaluation. He understands risks of leaving including possible and disability that could be permanent and is willing to accept these risks, he is choosing to leave against my medical advise. He understands he can return at any time if he changes his mind. Will provide antiemetics to help with his symptoms. Differential Diagnosis Differential Diagnosis: gastroenteritis, food illness, pancreatitis HPI General Mode of arrival: ambulatory. Date/Time Provider Initiated Documentation: 06/28/20 07:22. Limitations to Documentation: no limitations. Information obtained by: patient. History of Present Illness 50 year old M presents to the emergency department with the chief complaint of nausea, described as moderate, Patient started experiencing this day(s) (2) and it has been constant. No relieving factors improve symptom(s), No exacerbating factors reported . Patient did receive the following treatments prior to arrival, none Related Data Home Medications Medication Instructions Recorded Confirmed methadone 60 mg PO DAILY 07/07/15 06/28/20 naloxone 1 spray NGOZI ONCE PRN #2 each 09/19/18 06/28/20 ondansetron 4 mg PO Q8H PRN #30 tab 06/28/20 Previous Rx's Medication Instructions Recorded naloxone 1 spray NGOZI ONCE PRN #2 each 09/19/18 ondansetron 4 mg PO Q8H PRN #30 tab 06/28/20 Allergies Allergy/AdvReac Type Severity Reaction Status Date / Time codeine Allergy Skin Rash Unverified 03/01/20 10:34 General Stated Complaint: Nausea/Vomit/Diar ADALBERTO: 3 Review of Systems All systems reviewed & are unremarkable except as noted in HPI and below Constitutional Constitutional: Denies chills, Denies fever(s) and Denies weakness ENT Ears, Nose, Mouth, and Throat: Denies change in voice Cardiovascular Cardiovascular: Denies chest pain and Denies dyspnea Respiratory Respiratory: Denies cough and Denies dyspnea Gastrointestinal Gastrointestinal: Denies abdominal pain Musculoskeletal Musculoskeletal: Denies joint swelling Neurologic Neurologic: Denies weakness Psychiatric Psychiatric: Denies depression [facility] Medical History (Updated 06/28/20 @ 07:40 by Lee Riddle MD) Hepatitis C Kidney stones Surgical History Broken jaw Social History Smoking/Tobacco Use Status: Current every day Tobacco Type: cigarettes Smoking risk assessment performed?: Yes Alcohol Intake: former Drug use: Daily Substance use type: marijuana and other Details: occasional IV drug user - last use heroin 2 weeks ago Details: Baart--methadone Do you feel safe at home: Yes Do you feel safe in your relationship?: Yes Exam Const General: no acute distress Orientation: alert HENMT Head: normal to inspection Ears: external ears normal General nose exam: external nose normal Mouth: moist mucous membranes Eyes General: appearance normal, both eyes and all related structures Neck Neck: normal visual inspection Resp Effort & Inspection: normal respiratory effort and able to speak in complete sentences Cardio Rate: regular rate GI Palpation: soft and nontender Skin General skin exam: no rashes or lesions noted Neuro General: patient alert and patient oriented x3 Extrem General: normal to inspection Psych Mental Status: mental status grossly normal Course Vital Signs Vital signs: Vital Signs Temperature 36.7 C 06/28/20 07:20 Pulse 61 06/28/20 07:20 Respiratory Rate 16 06/28/20 07:20 Blood Pressure 112/95 H 06/28/20 07:20 Pulse Oximetry 99 06/28/20 07:20 Temperature 36.7 C 06/28/20 07:20 Temperature Source Skin 06/28/20 07:20 Pulse 61 06/28/20 07:20 Respiratory Rate 16 06/28/20 07:20 Blood Pressure 112/95 H 06/28/20 07:20 Blood Pressure Position Sitting 06/28/20 07:20 Pulse Oximetry 99 06/28/20 07:20 Oxygen Delivery Method Room Air 06/28/20 07:20 Oxygen Flow Rate 0 06/28/20 07:20 Pain Level 5 06/28/20 07:20 Lab/Test Results Lab/Test Results: Laboratory Tests Range/Units 06/28/20 06/28/20 06/28/20 07:30 07:30 07:30 WBC Cancelled RBC Cancelled Hgb Cancelled Hct Cancelled MCV Cancelled MCH Cancelled MCHC Cancelled RDW Cancelled Plt Count Cancelled MPV Cancelled Immature Gran % Cancelled Neutrophils % Cancelled Band Neutrophils % Cancelled Lymphocytes % Cancelled Atypical Lymphs % Cancelled Monocytes % Cancelled Eosinophils % Cancelled Basophils % Cancelled Metamyelocytes % Cancelled Myelocytes % Cancelled Promyelocytes % Cancelled Other Cells % Cancelled Nucleated RBC % Cancelled Absolute Neutrophils Cancelled Absolute Lymphocytes Cancelled Absolute Monocytes Cancelled Absolute Eosinophils Cancelled Absolute Basophils Cancelled RBC Morphology Cancelled Polychromasia Cancelled Hypochromasia Cancelled Poikilocytosis Cancelled Basophilic Stippling Cancelled Anisocytosis Cancelled Microcytosis Cancelled Macrocytosis Cancelled Spherocytes Cancelled Tear Drop Cells Cancelled Ovalocytes Cancelled Stomatocytes Cancelled Diaz-Crete Bodies Cancelled Hazel Green Cells/Echinocytes Cancelled Acanthocytes (Spur) Cancelled Schistocytes Cancelled VBG pH VBG pCO2 VBG pO2 VBG HCO3 VBG Total CO2 VBG O2 Saturation VBG Base Excess VBG Lactate Cancelled Sodium Cancelled Potassium Cancelled Chloride Cancelled Carbon Dioxide Cancelled Anion Gap Cancelled BUN Cancelled Creatinine Cancelled Estimated GFR/1.73 m2 Cancelled Glucose Cancelled Calcium Cancelled Magnesium Cancelled Total Bilirubin Cancelled Conjugated Bilirubin Cancelled AST Cancelled ALT Cancelled Alkaline Phosphatase Cancelled Total Protein Cancelled Albumin Cancelled Lipase Cancelled Ethyl Alcohol Cancelled Range/Units 06/28/20 07:30 WBC RBC Hgb Hct MCV MCH MCHC RDW Plt Count MPV Immature Gran % Neutrophils % Band Neutrophils % Lymphocytes % Atypical Lymphs % Monocytes % Eosinophils % Basophils % Metamyelocytes % Myelocytes % Promyelocytes % Other Cells % Nucleated RBC % Absolute Neutrophils Absolute Lymphocytes Absolute Monocytes Absolute Eosinophils Absolute Basophils RBC Morphology Polychromasia Hypochromasia Poikilocytosis Basophilic Stippling Anisocytosis Microcytosis Macrocytosis Spherocytes Tear Drop Cells Ovalocytes Stomatocytes Diaz-Crete Bodies Tricia Cells/Echinocytes Acanthocytes (Spur) Schistocytes VBG pH Cancelled VBG pCO2 Cancelled VBG pO2 Cancelled VBG HCO3 Cancelled VBG Total CO2 Cancelled VBG O2 Saturation Cancelled VBG Base Excess Cancelled VBG Lactate Sodium Potassium Chloride Carbon Dioxide Anion Gap BUN Creatinine Estimated GFR/1.73 m2 Glucose Calcium Magnesium Total Bilirubin Conjugated Bilirubin AST ALT Alkaline Phosphatase Total Protein Albumin Lipase Ethyl Alcohol
[2020-06-28] MEDS: Ondansetron O.D.T. 4 MG TABEF PO (07:47)
== END 2020-06-28 07:54 | disposition left against medical advice (07) ==
PROVIDERS: Emergency Provider Emergency Medicine; PCP Nurse Practitioner Family
DX: R11.0 Nausea (principal); Z02.79 Encounter for issue of other medical certificate; Z53.29 Procedure and treatment not carried out because of patient's decision for other reasons
CPT/HCPCS: 80053; 82805; 83690; 99283; 80320; 82248; 83605; 83735; 85025

== ENCOUNTER 2020-12-19 01:15 | Emergency (ER) | payer MEDICAID, SELFPAY ==
[2020-12-19 01:22] VITALS: BP 139/84; PULSE 69; RESP 18; TEMP 36.6; O2SAT 98
--- NOTE | 2020-12-19 01:30 | RT.EKG_ITS ---
APPROVED REPORT Exam: Resting ECG Reason for Exam: HEADACHE Patient Location: E HR:54 bpm ECG Measurements Heart Rate 54 AXIS TX 168 P 57 QRSd 102 QRS 72 QT 437 T 36 QTc 415 Conclusion Sinus bradycardia...rate< 60 ST elev, probable normal early repol pattern...ST elevation, age<55 Physician: no stemi
[2020-12-19 01:35] LABS: Source Nasal/Nares
[2020-12-19] MEDS: Normal Saline 1,000 ML 1000 ML IV (01:45)
[2020-12-19 01:51] LABS: Abs Immature Grans 0.01 10^3/uL (0.0-0.06); Absolute Basophil Count 0.02 10^3/uL (0.0-0.2); Absolute Eosinophil Count 0.17 10^3/uL (0.0-0.7); Absolute Lymphocyte Count 1.74 10^3/uL (1.2-3.4); Absolute Monocyte Count 0.35 10^3/uL (0.1-0.8); Absolute Neutrophil Count 1.69 10^3/uL (1.2-6.7); Basophils % 0.5; Eosinophils % 4.3; HGB 14.9 g/dL (13.5-17.5); Immature Grans % 0.3; Lymphocytes % 43.7; MCHC 32.4 % (32.0-36.0); MCV 89.7 fL (80-95); Monocytes % 8.8; Neutrophils % 42.4; Nucleated RBC 0 %; Platelet Count 176 10^3/uL (130-400); RBC 5.13 10^6/uL (4.36-5.78); RDW 13.2 % (11.8-14.1); RDW-SD 43.8 fL; WBC 3.98 10^3/uL (4.4-10.8)
[2020-12-19 02:08] LABS: ALT 58 U/L (16-63); AST 43 U/L (15-37); Albumin 3.4 g/dL (3.4-5.0); Alkaline Phosphatase 80 U/L (46-116); Anion Gap 6.5 mmol/L (3-11); BUN 16 mg/dL (7-18); Bilirubin, Total 0.5 mg/dL (0.2-1.0); CO2 29.5 mmol/L (21.0-32.0); CREATININE 1.3 mg/dL (0.70-1.30); Calcium 8.6 mg/dL (8.5-10.1); Chloride 105 mmol/L (98-107); Estimated GFR 58.92 (mL/min/1.73m2); Glucose 106 mg/dL (74-106); Potassium 3.6 mmol/L (3.5-5.1); Sodium 141 mmol/L (136-145); Total Protein 7.2 g/dL (6.4-8.2)
[2020-12-19 02:13] LABS: Troponin I < 0.05 ng/mL (<0.06)
[2020-12-19 02:26] LABS: COVID-19 PCR Negative (Negative)
--- NOTE | 2020-12-19 02:46 | W.ED.GENAD ---
Discharge Plan Disposition Patient Disposition: HOME Condition: Good Discharge Details Clinical Impression: Viral illness Primary Care Provider: Leah Lyman ED Provider: Abner Berry Home Meds and New Rx's Prescriptions: Continued methadone 10 MG/ML concentrate 60 mg PO DAILY RF: 0 naloxone 4 mg/actuation spray,non-aerosol 1 spray NGOZI ONCE PRN (Reason: overdose) Qty: 2 RF: 0 ondansetron 4 mg tablet,disintegrating 4 mg PO Q8H PRN (Reason: nausea and vomiting) Qty: 30 RF: 0 Discharge Instructions Instructions: Viral Syndrome (ED) Additional Instructions: At this time your Covid test is negative, as are your other labs. There is no signs of heart attack, pneumonia, or other significant abnormality. Please drink plenty of fluids at home, stay well-hydrated, and take Tylenol and Motrin as needed for pain. You have continued symptoms that may be reasonable to get retested for Covid again. If you notice any worsening of your symptoms, or any new symptoms such as vomiting, diarrhea, fever, chills, shortness of breath, chest pain, numbness, weakness, or fainting , please return immediately to the emergency department for reevaluation. Please follow up with your primary care provider as soon as possible for reassessment and reevaluation. As always, it was a pleasure participating in your medical care today. Referrals: Leah Lyman [Primary Care Provider] - Medical Decision Making 50-year-old male presents today for evaluation of malaise. Patient states that for the last 24 hours he has had a mild frontal headache, mild fever and chills, myalgias, and mild nausea. He denies vomiting or diarrhea. He denies any chest pain or shortness of breath. He has not had his Covid vaccine. He denies any sick contacts. He denies any neck pain, or neck stiffness. He states that this headache is mild, and not the worst headache of his life. He denies any vision changes. No other complaints at this time. No loss of smell or taste. He does state that he has not been drinking much today. Physical exam demonstrates notably dry mucous membranes. Differential is highest for viral etiology versus Covid. Covid test is negative, laboratory work-up has returned and is unremarkable. Troponin EKG normal. After 1 L of normal saline the patient states that he feels much much better. He states he feels well and ready to go home. Suspect viral etiology compounded by mild dehydration. No clinical evidence of meningitis, pneumonia, or other life-threatening etiology at this time. Discussed red flags which to return. I have extensively reviewed the treatment plan and discharge instructions with the patient. I have addressed all patient concerns at this time. The patient was made aware of what symptoms to monitor for that would warrant a return to the emergency department. Discussed the plan with the patient, they demonstrate verbal understanding and agreement with our assessment and plan at this time. The documentation in this chart was dictated using [employer] dictation software. Please excuse any dictation errors. HPI General Date/Time Provider Initiated Documentation: 12/19/20 01:18. HPI Narrative: 50-year-old male presents today for evaluation of malaise. Patient states that for the last 24 hours he has had a mild frontal headache, mild fever and chills, myalgias, and mild nausea. He denies vomiting or diarrhea. He denies any chest pain or shortness of breath. He has not had his Covid vaccine. He denies any sick contacts. He denies any neck pain, or neck stiffness. He states that this headache is mild, and not the worst headache of his life. He denies any vision changes. No other complaints at this time. No loss of smell or taste. He does state that he has not been drinking much today. Related Data Home Medications Medication Instructions Recorded Confirmed methadone 60 mg PO DAILY 07/07/15 12/19/20 naloxone 1 spray NGOZI ONCE PRN #2 each 09/19/18 12/19/20 ondansetron 4 mg PO Q8H PRN #30 tab 06/28/20 Previous Rx's Medication Instructions Recorded naloxone 1 spray NGOZI ONCE PRN #2 each 09/19/18 ondansetron 4 mg PO Q8H PRN #30 tab 06/28/20 Allergies Allergy/AdvReac Type Severity Reaction Status Date / Time codeine Allergy Skin Rash Unverified 12/19/20 01:25 General Stated Complaint: Headache ADALBERTO: 4 Review of Systems All systems reviewed & are unremarkable except as noted in HPI and below PFSH Medical History Hepatitis C Kidney stones Surgical History Broken jaw Social History Smoking/Tobacco Use Status: Current every day Tobacco Type: cigarettes Smoking risk assessment performed?: Yes Alcohol Intake: former Drug use: Daily Substance use type: marijuana and other Details: occasional IV drug user - last use heroin 2 weeks ago Details: Baart--methadone Do you feel safe at home: Yes Do you feel safe in your relationship?: Yes Exam Narrative Exam Narrative: 1.Const: Well-nourished, Well-developed, appearing stated age 2.Eyes: PERRL, no conjunctival injection, and symmetrical lids. 3.ENT: Atraumatic external nose and ears. Dry MM. Neck: Symmetric, trachea midline, No thyromegaly. Patient demonstrates good movement of cervical neck. There is no nuchal rigidity, no nuchal tenderness. Patient is able to flex the neck without any difficulty or significant pain. Negative Kernig's and Brudzinski sign. 4.CVS: +S1/S2, No murmurs or gallops. Peripheral pulses 2+ and equal in all extremities. Brisk capillary refill in all extremities. 5.RESP: Unlabored respiratory effort. Clear to auscultation bilaterally. No wheezes rales or rhonchi 6.GI: Soft, Nontender/Nondistended, No hepatosplenomegaly. No guarding or rebound. 7.MSK: Normocephalic/Atraumatic, Extremities w/o deformity or ttp No cyanosis or clubbing, Normal movement of all extremities 8.Skin: Warm, Dry. No rashes or lesions. 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 Sensation grossly intact, no focal neurologic deficits. 10.Psych: (AAO) x3. Appropriate mood and affect Course Vital Signs Vital signs: Vital Signs Temperature 36.6 C 12/19/20 01:22 Pulse 69 12/19/20 01:22 Respiratory Rate 18 12/19/20 01:22 Blood Pressure 139/84 12/19/20 01:22 Pulse Oximetry 98 12/19/20 01:22 Temperature 36.6 C 12/19/20 01:22 Temperature Source Skin 12/19/20 01:22 Pulse 69 12/19/20 01:22 Respiratory Rate 18 12/19/20 01:22 Respiratory Effort Non-Labored 12/19/20 01:25 Blood Pressure 139/84 12/19/20 01:22 Pulse Oximetry 98 12/19/20 01:22 Pain Level 5 12/19/20 01:22 Lab/Test Results Lab/Test Results: Laboratory Tests Range/Units 12/19/20 12/19/20 12/19/20 01:30 01:45 01:45 WBC (4.4-10.8) 10^3/uL 3.98 L RBC (4.36-5.78) 10^6/uL 5.13 Hgb (13.5-17.5) g/dL 14.9 Hct (40.0-50.0) % 46.0 MCV (80-95) fL 89.7 MCH (27.0-33.0) pg 29.0 MCHC (32.0-36.0) % 32.4 RDW (11.8-14.1) % 13.2 Plt Count (130-400) 10^3/uL 176 MPV (8.0-11.0) fL 9.0 Immature Gran % 0.3 Neutrophils % 42.4 Lymphocytes % 43.7 Monocytes % 8.8 Eosinophils % 4.3 Basophils % 0.5 Nucleated RBC % % 0 Absolute Neutrophils (1.2-6.7) 10^3/uL 1.69 Absolute Lymphocytes (1.2-3.4) 10^3/uL 1.74 Absolute Monocytes (0.1-0.8) 10^3/uL 0.35 Absolute Eosinophils (0.0-0.7) 10^3/uL 0.17 Absolute Basophils (0.0-0.2) 10^3/uL 0.02 Sodium (136-145) mmol/L 141 Potassium (3.5-5.1) mmol/L 3.6 Chloride (98-107) mmol/L 105 Carbon Dioxide (21.0-32.0) mmol/L 29.5 Anion Gap (3-11) mmol/L 6.5 BUN (7-18) mg/dL 16 Creatinine (0.70-1.30) mg/dL 1.3 Estimated GFR/1.73 m2 (mL/min/1.73m2) 58.92 Glucose (74-106) mg/dL 106 Calcium (8.5-10.1) mg/dL 8.6 Total Bilirubin (0.2-1.0) mg/dL 0.5 AST (15-37) U/L 43 H ALT (16-63) U/L 58 Alkaline Phosphatase (46-116) U/L 80 Troponin I (<0.06) ng/mL < 0.05 Total Protein (6.4-8.2) g/dL 7.2 Albumin (3.4-5.0) g/dL 3.4 COVID-19 Source Nasal/Nares SARS-CoV-2 (PCR) (Negative) Negative
[2020-12-19 02:50] VITALS: BP 115/77; PULSE 54; RESP 16; O2SAT 95
== END 2020-12-19 02:50 | disposition home or self-care (01) ==
PROVIDERS: Emergency Provider Student in an Organized Health Care Education/Training Program; PCP Nurse Practitioner Family
DX: R53.81 Other malaise (principal); R51.9 Headache, unspecified; R50.9 Fever, unspecified; R11.0 Nausea; B34.9 Viral infection, unspecified; Z20.822 Contact with and (suspected) exposure to COVID-19; Z03.818 Encounter for observation for suspected exposure to other biological agents ruled out
CPT/HCPCS: 36415; 80053; 87635; 93005; 96360; 99284; 84484; 85025; 93010; 99285

== ENCOUNTER 2021-04-14 15:51 | Emergency (ER) | payer MEDICAID, SELFPAY ==
[2021-04-14] VITALS (58 sets, daily range): BP systolic 95–129; BP diastolic 59–93; PULSE 53–110; RESP 8–29; TEMP 36.3–36.6; O2SAT 88–100
--- NOTE | 2021-04-14 16:15 | DI.RAD_ITS ---
Exam(s) XR WRIST LT COMPLETE EXAM: XR WRIST LT COMPLETE CLINICAL HISTORY: deformed wrist post fall. TECHNIQUE: 2D digital imaging was performed. COMPARISON: No exams were available for comparison FINDINGS: BONES: Comminuted fracture distal radius with significant posterior displacement, mild angulation and impaction. Extension to the articular surface. Question of a tiny bony fragment near the ulnar sty loid. No bony destructive lesion is seen. JOINTS: The carpal bones are normally aligned. SOFT TISSUE: Swelling IMPRESSION: Displaced, comminuted intra-articular fracture of the distal radius. DATA REPOSITORY: RADIATION DOSE DELIVERED:
--- NOTE | 2021-04-14 17:33 | ED.GENADUL_ITS ---
Discharge Plan Disposition Patient Disposition: HOME Discharge Details Clinical Impression: Closed fracture of left wrist Primary Care Provider: Leah Lyman ED Provider: Anne Oneal Home Meds and New Rx's Prescriptions: Continued methadone 10 MG/ML concentrate 60 mg PO DAILY RF: 0 naloxone 4 mg/actuation spray,non-aerosol 1 spray NGOZI ONCE PRN (Reason: overdose) Qty: 2 RF: 0 No Action ibuprofen 600 mg tablet 600 mg PO TID PRN (Reason: pain) Qty: 90 RF: 3 oxycodone 5 mg tablet 5 mg PO Q4H Qty: 18 RF: 0 acetaminophen 500 mg tablet 500 mg PO Q6H PRN PRN (Reason: pain) Qty: 90 RF: 3 Discharge Instructions Instructions: Wrist Fracture in Adults (ED) Additional Instructions: Keep splint clean, dry, and intact. Please follow-up with orthopedics. Call on Friday to confirm follow-up appo intment. Please take ibuprofen over the counter. Take 600mg by mouth every 6 hours as needed for pain. Please take acetaminophen (tylenol) - 650mg every 6 hours by mouth as needed for pain. Return to the ER immediately for any worsening or new concerning symptoms. Referrals: [facility] [Provider Group] Discharge Data Discharge Date/Time-TO BE ENTERED AT DEPARTURE: 04/14/21 22:15 Medical Decision Making <Geovany Lovett MD - Last Filed: 04/20/21 19:26> Medical Records Medical records narrative: Patient seen, examined, and discussed with MATTHIAS Watson. I agree with treatment plan as discussed/documented. <MATTHIAS Hurst - Last Filed: 04/14/21 22:19> Fracture with dorsal angulation, comminuted, discussed with Dr. Everett, orthopedic to recommend reduction status post hematoma block Case discussed with Dr. Geovany Lovett who will perform hematoma block and reduction Please see his documentation Patient tolerated procedure without incident Patient remained neurovascularly intact throughout the entirety of this clinical exam Status post reduction, films were taken and do show improved alignment although not completely reduced, patient remains neurovascularly intact and his pain has improved He is placed in a sugar tong splint, Ortho-Glass by me to his left upper extremity A sling was applied additionally As patient has received IM Versed in addition to medications taken prior to arrival, we did consider this a mild sedation and patient was discharged in the care of his friend after 2 hours of observation, his vitals remained stable and he is alert and oriented and ambulatory at time of discharge home Is placed on orthopedic follow-up list and they will see him Friday for reassessment Medical Records Medical records reviewed: Yes I reviewed the patient's medical records. Lab Data Lab results reviewed: Yes I reviewed the patient's lab results. HPI <Geovany Lovett MD - Last Filed: 04/20/21 19:26> General Date/Time Provider Initiated Documentation: 04/14/21 16:09 . Related Data Home Medications Medication Instructions Recorded Confirmed methadone 60 mg PO DAILY 07/07/15 04/18/21 naloxone 1 spray NGOZI ONCE PRN #2 each 09/19/18 04/18/21 acetaminophen 500 mg PO Q6H PRN PRN #90 tab 04/18/21 ibuprofen 600 mg PO TID PRN #90 tab 04/18/21 oxycodone 5 mg PO Q4H #18 tab 04/18/21 Previous Rx's Medication Instructions Recorded naloxone 1 spray NGOZI ONCE PRN #2 each 09/19/18 acetaminophen 500 mg PO Q6H PRN PRN #90 tab 04/18/21 ibuprofen 600 mg PO TID PRN #90 tab 04/18/21 oxycodone 5 mg PO Q4H #18 tab 04/18/21 Allergies Allergy/AdvReac Type Severity Reaction Status Date / Time codeine Allergy Skin Rash Unverified 04/18/21 12:14 <MATTHIAS Hurst - Last Filed: 04/14/21 22:19> General Mode of arrival: ambulatory . Limitations to Documentation: no limitations . Information obtained by: patient . HPI Narrative: This 51-year-old male with history of IV drug abuse presents status post fall with left wrist injury. He states he slipped on ice approximately an hour prior to arrival. He did inject fentanyl for pain control prior to arriving in the emergency room. He denies any head injury or neck pain he denies any additional pain complaints, numbness or tingling. States he is unable to move his wrist secondary to discomfort General Stated Complaint: Orthopedic ADALBERTO: 3 <MATTHIAS Hurst - Last Filed: 04/14/21 22:19> All systems reviewed & are unremarkable except as noted in HPI and below PFSH <Geovany Lovett MD - Last Filed: 04/20/21 19:26> All Active Problems (Updated 04/18/21 @ 13:31 by Miguel Everett MD) Nausea (Acute) Viral illness (Acute) Closed fracture of left wrist (Acute) Medical History Hepatitis C IV drug user Pt. states last use was 04/17/2021 Kidney stones Surgical History Broken jaw Social History Smoking/Tobacco Use Status: Current every day Tobacco Type: cigarettes Smoking risk assessment performed?: Yes Alcohol Intake: former Drug use: Daily Substance use type: marijuana, IV drugs, prescription drug and other Details: occasional IV drug user - last use heroin 2 weeks ago Details: Baart--methadone IV Drug use Fentanyl last use 04/17/21 dosage unknown Do you feel safe at home: Yes Do you feel safe in your relationship?: Yes <MATTHIAS Hurst - Last Filed: 04/14/21 22:19> Const General: cooperative and well developed Eyes Pupils: PERRL Neck Other: No midline tenderness Resp Effort & Inspection: normal respiratory effort Auscultation: clear to auscultation bilaterally Cardio Rate: regular rate Other: Distal pulses intact Extrem Other: Left wrist with obvious deformity, neurovascularly intact, no left elbow tenderness, no left shoulder tenderness, no bilateral lower extremity tenderness <MATTHIAS Hurst - Last Filed: 04/14/21 22:19> Vital Signs Vital signs: Vital Signs Temperature 36.3 C L 04/14/21 16:02 Pulse 110 H 04/14/21 16:02 Respiratory Rate 20 04/14/21 16:02 Blood Pressure 123/93 H 04/14/21 16:02 Pulse Oximetry 94 04/14/21 16:02 Temperature 36.3 C L 04/14/21 16:02 Temperature Source Temporal Artery Scan 04/14/21 16:02 Pulse 110 H 04/14/21 16:02 Respiratory Rate 20 04/14/21 16:02 Respiratory Effort 04/14/21 16:53 Blood Pressure 123/93 H 04/14/21 16:02 Blood Pressure Position Sitting 04/14/21 16:02 Pulse Oximetry 94 04/14/21 16:02 Oxygen Delivery Method Venti Mask 04/14/21 16:02 Pain Level 10 04/14/21 16:56 Procedures <Geovany Lovett MD - Last Filed: 04/20/21 19:26> Orthopedic Fracture Reduction Fracture #1: Time Out Performed: Yes Side: left Fracture Reduction Location: radius Analgesia: procedural sedation and hematoma block Technique: direct manipulation and traction/counter-traction Post Reduction X-rays Demonstrate: acceptable reduction Post-reduction neuro exam: intact Post-reduction vascular exam: intact Splint Applied: Yes (by MATTHIAS Oneal) Patient Tolerated Procedure: well and no complications Procedural Sedation Indication: fracture/dislocation reduction ASA Class: II Preparation: vehicle monitor technician applied, pulse oximeter, reversal agents at bedside and suction/airway equipment at bedside Midazolam: IM Midazolam dose (mg): 4 Complications: none
[2021-04-14] MEDS: Lidocaine/Epinephri/Tetracaine Topical Gel 3 ML (17:52)
--- NOTE | 2021-04-14 18:12 | DI.VRAD_ITS ---
PROCEDURE INFORMATION: Exam: XR Left Wrist Exam date and time: 04/14/2021 4:21 PM Age: 51 years old Clinical indication: Other: Deformed wrist post fall TECHNIQUE: Imaging protocol: XR Left wrist. Views: 3 or more views. COMPARISON: No relevant prior studies available. FINDINGS: Bones/joints: Comminuted fracture of the distal left radius. The fracture may be intra-articular. Moderate posterior displacement of this fracture by about 13 mm. The fracture is impacted angulated as well. Soft tissues: Normal. IMPRESSION: Moderately displaced distal left radial fracture Dictated and Authenticated by: Cruz Inman MD. Ordering:ZAKIA Rodríguez MD
[2021-04-14] MEDS: Midazolam 2 MG/2 ML VIAL 4 MG IM (18:21)
[2021-04-14] MEDS: Lidocaine 1% Multi-Dose 20 ML VIAL IJ (18:33)
[2021-04-14] MEDS: Bupivacaine 0.5% Pres-Free 30 ML VIAL IJ (18:33)
--- NOTE | 2021-04-14 18:59 | DI.RAD_ITS ---
Exam(s) XR WRIST LT LIMITED EXAM: XR WRIST LT LIMITED CLINICAL HISTORY: pst red. TECHNIQUE: 2D digital imaging was performed. COMPARISON: CR,XR XR WRIST LT COMPLETE from 04/14/2021 FINDINGS: Two views. Improved alignment of the previously noted comminuted distal radial fracture. No change tiny ulnar styloid fracture. IMPRESSION: Improved alignment of distal radial fracture. DATA REPOSITORY: RADIATION DOSE DELIVERED:
--- NOTE | 2021-04-14 19:30 | DI.RAD_ITS ---
Exam(s) XR WRIST LT COMPLETE EXAM: XR WRIST LT COMPLETE CLINICAL HISTORY: post red. TECHNIQUE: 2D digital imaging was performed. COMPARISON: CR,XR XR WRIST LT LIMITED from 04/14/2021 CR,XR XR WRIST LT COMPLETE from 04/14/2021 CR,XR XR WRIST LT COMPLETE from 04/14/2021 CR,XR XR WRIST LT LIMITED from 04/14/2021 FINDINGS: A cast has been placed. There is been no change in the alignment of the distal radial fracture amalia red with the previous exam. IMPRESSION: . DATA REPOSITORY: RADIATION DOSE DELIVERED:
--- NOTE | 2021-04-14 19:32 | DI.VRAD_ITS ---
PROCEDURE INFORMATION: Exam: XR Left Wrist Exam date and time: 04/14/2021 7:01 PM Age: 51 years old Clinical indication: Screening exam; Post-reduction; Patient HX: Post reduction L wrist TECHNIQUE: Imaging protocol: XR Left wrist. Views: 1 or 2 views. COMPARISON: CR XR WRIST LT COMPLETE 04/14/2021 4:44 PM FINDINGS: Bones/joints: Distal left radial fracture again noted. There is improved alignment status post reduction, but there remains about 10 mm of posterior displacement of the distal fragment. Soft tissues: Soft tissue swelling noted. IMPRESSION: Improved alignment status post reduction Dictated and Authenticated by: Cruz Inman MD. Ordering:ZAKIA Rodríguez MD
--- NOTE | 2021-04-14 21:39 | DI.VRAD_ITS ---
PROCEDURE INFORMATION: Exam: XR Left Wrist Exam date and time: 04/14/2021 19:38 Age: 51 years old Clinical indication: Screening exam; 2nd post-red films; Patient HX: Post-reduction TECHNIQUE: Imaging protocol: XR Left wrist. Views: 3 or more views. COMPARISON: CR XR WRIST LT LIMITED 04/14/2021 19:13 FINDINGS: Bones/joints: Similar alignment of the acute distal radial fracture accounting for projections. Impaction is moderate and similar. A mild distal radial angulation is better appreciated on the oblique view. Probable tiny avulsion fracture of the ulnar styloid again seen. No dislocation. Overlying splint Soft tissues: Generalized swelling. IMPRESSION: Similar alignment of the distal radial fracture. Dictated and Authenticated by: Yohana Gordillo MD. Ordering:ZAKIA Rodríguez MD
== END 2021-04-14 22:15 | disposition home or self-care (01) ==
PROVIDERS: Emergency Provider Physician Assistant; PCP Nurse Practitioner Family
DX: S52.592A Other fractures of lower end of left radius, initial encounter for closed fracture (principal); W00.0XXA Fall on same level due to ice and snow, initial encounter
CPT/HCPCS: 25605; 73100; 73110; J2250; J3490

== ENCOUNTER 2021-04-17 01:38 | Outpatient (CLI) | payer MEDICAID, SELFPAY ==
[2021-04-17 12:45] LABS: Source Nasal/Nares
[2021-04-17 15:20] LABS: COVID-19 PCR Negative (Negative)
== END 2021-04-17 01:39 | disposition home or self-care (01) ==
LOC: LBO 01:39
PROVIDERS: PCP Nurse Practitioner Family; Visit Provider Student in an Organized Health Care Education/Training Program
DX: Z20.822 Contact with and (suspected) exposure to COVID-19 (principal); Z01.818 Encounter for other preprocedural examination
CPT/HCPCS: 87635

== ENCOUNTER 2021-04-18 11:52 | Day surgery (SDC) | payer MEDICAID, SELFPAY ==
[2021-04-18] VITALS (10 sets, daily range): BP systolic 106–146; BP diastolic 45–87; PULSE 50–72; RESP 10–16; TEMP 36.2–36.7; O2SAT 93–96; BMI 27.7
--- NOTE | 2021-04-18 10:41 | W.ANESPRE ---
General Info Date of Service Date Performed: 04/18/21 Height: 6 ft 1 in Weight: 95.254 kg Body Mass Index (BMI): 27.7 Surgical Procedure: Operation Date: 04/18/21 15:25 Proposed Procedures Side Surgeon p Wrist ORIF Distal Radius Left Miguel Everett MD Meds Allergies and Home Medications Allergies Allergy/AdvReac Type Severity Reaction Status Date / Time codeine Allergy Skin Rash Unverified 04/18/21 12:14 Home Medication Medication Instructions Recorded methadone 60 mg PO DAILY 07/07/15 naloxone 1 spray NGOZI ONCE PRN #2 each 09/19/18 acetaminophen 500 mg PO Q6H PRN PRN #90 tab 04/18/21 ibuprofen 600 mg PO TID PRN #90 tab 04/18/21 oxycodone 5 mg PO Q4H #18 tab 04/18/21 Current Visit Medications: Current Medications Generic Name Dose Route Start Last Admin Trade Name Freq PRN Reason Stop Dose Admin Ringer's Solution 1,000 mls @ 80 mls/hr 04/18/21 06:00 IV 05/17/21 23:59 INFUSION ALLY Cefazolin Sodium/Dextrose 2 gm in 50 mls @ 100 mls/hr 04/18/21 06:00 Ancef Duplex IVPB 04/18/21 16:00 PREOP ALLY IV Miscellaneous Supplies 1 each 04/18/21 06:00 Iv Access IV 05/17/21 23:59 DIRECTED ALLY Sodium Chloride 0 ml 04/18/21 06:00 Normal Saline Flush 10 Ml Syr IV 05/17/21 23:59 PRN PRN Sodium Chloride 0 ml 04/18/21 06:00 Normal Saline 10 Ml Vial IJ 05/17/21 23:59 DIRECTED PRN Sterile Water 0 ml 04/18/21 06:00 Water,Injection,Sterile 10 Ml Vial IJ 05/17/21 23:59 DIRECTED PRN PFSH Active Problems Active Problems: Problem Status Onset Code Nausea R11.0 Viral illness B34.9 Closed fracture of left wrist S62.102A Medical History Medical History Hepatitis C IV drug user Pt. states last use was 04/17/2021 Kidney stones Surgical History Surgical History Broken jaw Tobacco Smoking/Tobacco Use Status: Current every day Tobacco Type: cigarettes Smoking cigarettes per day: 10 Alcohol Alcohol Intake: former Substance Use Substance use: Daily Substance use type: marijuana, IV drugs, prescription drug and other Details: occasional IV drug user - last use heroin 2 weeks ago Details: Baart--methadone IV Drug use Fentanyl last use 04/17/21 dosage unknown Vital Signs and Lab Results Vital Signs Most Recent Vital Signs in EMR: Temp Pulse Resp BP Pulse Ox 36.2 C L 54 L 14 134/72 94 04/18/21 13:45 04/18/21 13:45 04/18/21 13:45 04/18/21 13:45 04/18/21 13:45 Lab Results Blood Type / Crossmatch: No Data to Display Complete Blood Count: No Data to Display Complete Metabolic Panel: No Data to Display Liver Function Panel: No Data to Display Coagulation Panel: No Data to Display Cardiac Panel: No Data to Display Arterial Blood Gas: No Data to Display Venous Blood Gas: No Data to Display Pancreas Panel: No Data to Display Thyroid Panel: No Data to Display Infectious Disease: Coronavirus (COVID-19)(PCR) Negative (Negative) 04/17/21 11:41 04/17/21 Coronavirus 2019 Source Nasal/Nares 04/17/21 11:41 04/17/21 Blood Cultures: No Data to Display Toxicology Panel: No Data to Display Imaging and Studies Imaging and Studies Study information below may be from another EMR and interpreted by another provider. Please see original notes in EMR for more complete details. EKG Summary: 12/19/20: sinus renee, early repol Anesthesia Assessment and Plan Anesthesia History Personal History: No History of Anesthesia Complications Family History: No Family History of Anesthesia Complications Exercise Tolerance Exercise Tolerance: Metabolic Equivalents>4 Pertinent Negatives Pertinent Negatives: No Symptoms of GERD, No Major Cardiovascular Symptoms or Complaints, No Major Pulmonary Symptoms or Complaints and No History of CVA/TIA Cardiac & Pulmonary Exam Cardiac Exam: Normal S1/S2 Heart Sounds Pulmonary Exam: Clear Bilateral Breath Sounds Implantable Cardiac Device Does patient have a Pacemaker or an ICD?: No Airway Exam Known Difficult Airway: No Mallampati Class: 2 Mouth Opening: Normal (> 3cm) Thyromental Distance: Greater than 3 cm Facial Hair: Full [place]ck Range of Motion: Full ROM Neck Circumference: Normal Teeth Condition: Edentulous ASA Classification ASA Score: ASA 2 Emergency Case?: No NPO Status NPO Status: NPO Clears >2 hours, Solids >8 hours Anesthesia Plan Resuscitation Status: Full Code Anesthesia Technique: General Anesthesia Airway Planned: LMA Pain Management: Surgeon and patient request nerve block Monitors Used: Standard Monitors Preoperative Comments:: 51 yo male with left wrist fracture for ORIF. Sig PMHx: hep c, current smoker (tobacco/cannabis), methadone/fentanyl.
--- NOTE | 2021-04-18 11:55 | W.PM.DSUDISC ---
Documented by User: Diana Larry 04/18/21 11:58 Discharge Plan Disposition Patient Disposition: HOME Condition: Good Discharge Details Reason For Visit: Left distal radius fracture Attending Provider: Miguel Everett Primary Care Provider: Leah Lyman Home Meds and New Rx's Prescriptions: New ibuprofen 600 mg tablet 600 mg PO TID PRN (Reason: pain) Qty: 90 RF: 3 oxycodone 5 mg tablet 5 mg PO Q4H Qty: 18 RF: 0 acetaminophen 500 mg tablet 500 mg PO Q6H PRN PRN (Reason: pain) Qty: 90 RF: 3 Continued methadone 10 MG/ML concentrate 60 mg PO DAILY RF: 0 naloxone 4 mg/actuation spray,non-aerosol 1 spray NGOZI ONCE PRN (Reason: overdose) Qty: 2 RF: 0 Discharge Instructions Additional Instructions: Wrist Fracture Fixation Discharge Instructions Activity: You should keep the hand/wrist elevated as much as possible for the first few days. You may use the fingers as tolerated but avoid trying to do too much too soon. You may perform light activities with the splint in place. Dressing/Cast: Your splint should stay in place at all times. Do NOT get it wet. You may loosen the LAURIE wrap if you feel it is too tight and then re-wrap more loosely. Medications: - You should take Tylenol and Ibuprofen for baseline pain control. - You have been prescribed a stronger pain medication, Oxycodone, for breakthrough pain. - You may apply ice over the wrist, just double bag so it doesn't get wet. Follow-up: 10-14 days Referrals: Miguel Everett MD [ [facility] STAFF PHYSICIAN] - Equipment/Supplies: Splint and Sling Activity:: Elevate Remove Dressings/Wound Care:: Do Not Remove Shower/Bathe:: Cover Diet:: As Tolerated Discharge Orders Discharge Orders: Discharge Order (Routine); Ordered 04/18/21 Ordered By: Diana Larry DS: Diagnosis Discharge Diagnosis (1) Closed fracture of left wrist: Status: Acute Documented by User: Miguel Everett MD 04/18/21 14:13 Discharge Plan Disposition Patient Disposition: HOME Condition: Good Discharge Details Reason For Visit: Left distal radius fracture Attending Provider: Miguel Everett Primary Care Provider: Leah Lyman Home Meds and New Rx's Prescriptions: New ibuprofen 600 mg tablet 600 mg PO TID PRN (Reason: pain) Qty: 90 RF: 3 oxycodone 5 mg tablet 5 mg PO Q4H Qty: 18 RF: 0 acetaminophen 500 mg tablet 500 mg PO Q6H PRN PRN (Reason: pain) Qty: 90 RF: 3 Continued methadone 10 MG/ML concentrate 60 mg PO DAILY RF: 0 naloxone 4 mg/actuation spray,non-aerosol 1 spray NGOZI ONCE PRN (Reason: overdose) Qty: 2 RF: 0 Discharge Instructions Additional Instructions: Wrist Fracture Fixation Discharge Instructions Activity: You should keep the hand/wrist elevated as much as possible for the first few days. You may use the fingers as tolerated but avoid trying to do too much too soon. You may perform light activities with the splint in place. Dressing/Cast: Your splint should stay in place at all times. Do NOT get it wet. You may loosen the LAURIE wrap if you feel it is too tight and then re-wrap more loosely. Medications: - You should take Tylenol and Ibuprofen for baseline pain control. - You have been prescribed a stronger pain medication, Oxycodone, for breakthrough pain. - You may apply ice over the wrist, just double bag so it doesn't get wet. Follow-up: 10-14 days Referrals: Miguel Everett MD [ [facility] STAFF PHYSICIAN] - Equipment/Supplies: Splint and Sling Activity:: Elevate Remove Dressings/Wound Care:: Do Not Remove Shower/Bathe:: Cover Diet:: As Tolerated Discharge Orders Discharge Orders: Discharge Order (Routine); Ordered 04/18/21 Ordered By: Diana Larry
[2021-04-18] MEDS: Lactated Ringers 1,000 ML 80 ML IV (13:17)
--- NOTE | 2021-04-18 13:27 | W.PREOPHP ---
Assessment and Plan Assessment and plan (1) Closed fracture of left wrist: Status: Acute Assessment and plan: Gucci is a 51-year-old who has a intra-articular and displaced fracture of the left distal radius peer given his young age I recommended operative fixation. I also discussed close reduction and casting with him. He prefers to proceed with operative fixation. I reviewed the technical procedures. I also discussed the risk of the procedure to include bleeding, infection, pain, stiffness, damage to nerves and vessels, damage to muscle and tendons, hardware prominence, hardware failure, malunion, nonunion, need for repeat procedures, tendon rupture. Despite these risk, he elects to proceed. Qualifiers: Encounter type: initial encounter Qualified Code(s): S62.102A - Fracture of unspecified carpal bone, left wrist, initial encounter for closed fracture History of Present Illness History of Present Illness Chief Complaint: Left Distal Radius Fracture Narrative: Gucci is a 51-year-old who suffered a fall onto his left wrist after slipping on some ice on 14 April. He was seen in the emergency department and diagnosed with a displaced intra-articular fracture of the left distal radius. Attempted reduction was performed which improve the angulation but there still is notable translation along with an intra-articular split. He had notable pain. He is an active IV drug user. He has had significant pain since being home with a splint but has been trying to keep it elevated. He denies numbness or tingling. He denies previous injuries to the left wrist. He is right-hand dominant. Review of Systems All systems reviewed & are unremarkable except as noted in HPI and below PFSH All Active Problems (Updated 04/18/21 @ 13:31 by Miguel Everett MD) Nausea (Acute) Viral illness (Acute) Closed fracture of left wrist (Acute) Medical History Hepatitis C IV drug user Pt. states last use was 04/17/2021 Kidney stones Surgical History Broken jaw Social History Smoking/Tobacco Use Status: Current every day Tobacco Type: cigarettes Smoking risk assessment performed?: Yes Alcohol Intake: former Drug use: Daily Substance use type: marijuana, IV drugs, prescription drug and other Details: occasional IV drug user - last use heroin 2 weeks ago Details: Baart--methadone IV Drug use Fentanyl last use 04/17/21 dosage unknown Do you feel safe at home: Yes Do you feel safe in your relationship?: Yes Meds Allergies and Home Medications Allergies Allergy/AdvReac Type Severity Reaction Status Date / Time codeine Allergy Skin Rash Unverified 04/18/21 12:14 Home Medications Medication Instructions Recorded Confirmed Type methadone 60 mg PO DAILY 07/07/15 04/18/21 History naloxone 1 spray NGOZI ONCE PRN #2 each 09/19/18 04/18/21 Rx Exam Narrative Exam Narrative: Sitting up on the hospital stretcher. No acute distress. Alert orient x3. Chest is clear to auscultation bilaterally but slightly diminished in the bases. Heart rate and rhythm are regular. Evaluation of the left wrist is limited by the splint. Is in good position. Fingers have normal posturing. He has intact EPL, EDC, FPL, FDS and FDP function. Sensation intact light touch of the median, radial, ulnar nerve. Cap refill less than 2 seconds Results Imaging Imaging Studies: X-ray of the left wrist shows a translated and mildly angulated distal radius fracture after reduction with also radial subluxation. There is also a intra-articular split at the lunate facet. No other suspicious lesions are identified. Last Vital Signs Temp 36.2 C L 04/18/21 12:17 Pulse 65 04/18/21 12:17 Resp 16 04/18/21 12:17 BP 146/87 H 04/18/21 12:17 Pulse Ox 96 04/18/21 12:17
[2021-04-18] MEDS: ceFAZolin 2 GM/50 ML BAG IVPB (14:04)
--- NOTE | 2021-04-18 14:15 | DI.RAD_ITS ---
Exam(s) XR WRIST LT COMPLETE EXAM: XR WRIST LT COMPLETE CLINICAL HISTORY: left wrist fracture TECHNIQUE: 2D and realtime digital imaging was performed. CONTRAST MATERIAL: Refer to procedure report. COMPARISON: CR,XR XR WRIST LT COMPLETE from 04/14/2021 FINDINGS: Fluoroscopy was provided for Dr. Everett during the performance of a status post open reduction and internal fixation of the distal radial fracture.. Please refer to the procedure report for complete details. Ka,r=0.3166 mGy IMPRESSION: RADIATION DOSE DELIVERED:
--- NOTE | 2021-04-18 14:23 | W.ANESNERVE ---
Nerve Block Single Injection Procedure Date and Time Date Performed: 04/18/21 Procedure Start: 13:40 Location Where Procedure Performed Procedure Location: Day Surgery Unit Reason Performed: Postoperative Analgesia Requesting Provider: Miguel Everett Timeout Performed Timeout Performed: Yes Monitoring Used ECG, Blood Pressure and SpO2 Sterility Sterility: Hand Hygiene, Surgical Cap, Surgical Mask and Sterile Gloves Sedation Given During Procedure Sedation Given (Indicate Dose Given): Versed IV Dose:: 3 mg, Ketamine IV Dose:: 10 mg and Precedex IV Dose:: 12 mcg Patient Mental Status Patient Mental Status: Sedate with meaningful communication Nerve Block 1st Nerve Block: Laterality: Left Block Type: Axillary Needle / Catheter Used: 100mm SonoPlex II Local Anesthetic Bolus (Indicate Dose Given): Injected in 3-5ml increments after negative blood aspiration, Bupivacaine 0.5% Dose:: 23 mL and Exparel Dose:: 10 mL Additives (Indicate Dose Given): None Ultrasound: Sterile probe cover and gel used Ultrasound Image Saved?: Yes Nerve Stimulator: Not Used Paresthesia: None Procedure Tolerated: No Complications Procedure Outcome: Successful Performed By: Quinton Luis Other (not listed above): ailin alvarado
--- NOTE | 2021-04-18 16:22 | W.ANESPOSTOP ---
Postoperative Evaluation Date, Time and Location Date Performed: 04/18/21 Time Performed: : Patient Location: PACU Vital Signs Most Recent Imported Vital Signs: Most Recent Vital Signs Temp Pulse Resp BP Pulse Ox 36.2 C L 54 L 11 L 112/45 L 95 04/18/21 16:18 04/18/21 16:18 04/18/21 16:18 04/18/21 16:18 04/18/21 16:18 Pain Score Most Recent Pain Score: Most Recent Pain Score Pain Level 0 04/18/21 16:18 Assessment Mental Status: Awake (Alert & Oriented to Patient Baseline) Airway and Respiratory Function: Patent airway with normal (patient baseline) respiratory exam Cardiovascular Function: Hemodynamically Stable Hydration Status: Adequately Hydrated Nausea & Vomiting: No Nausea or Vomiting Pain: Pt. Denies Any Pain Peripheral Nerve Block: Regional nerve block not resolved at time of post operative discharge
--- NOTE | 2021-04-18 20:53 | W.PM.OP ---
Date of service: 04/18/21 Time of Service: 15:18 Operative Note Operative Note DATE OF PROCEDURE: 04/19/21 PRE-OP DIAGNOSIS: Left distal Radius Fracture POST-OP DIAGNOSIS: same PROCEDURE: Open Reduction and Internal Fixation of Left Distal Radius, 2 parts SURGEON: Miguel Everett [employer]: Diana Larry ANESTHESIA TYPE: General LMA/ETT and Primary Nerve Block Refer to Anesthesia Record ESTIMATED BLOOD LOSS: 10 PATHOLOGY: none sent TOURNIQUET TIME: 38 COMPLICATIONS: None Patient was transported to: PACU Patient's condition: stable Indications: Gucci is a 51-year-old male who I have seen for a distal radius fracture. Given the deformity, displacement, fracture pattern, and effect on daily function, I recommended surgical fixation. I reviewed the risk of the procedure to include bleeding, infection, stiffness, damage to nerves and vessels, damage to muscles and tendons, malunion, nonunion, hardware prominence, tendon rupture, need for repeat procedures. Despite these risks, the patient elected to proceed. Findings: There is a distal radius fracture which had 2 primary parts. It was reduced and fixed with a Synthes volar locking plate. Procedure Description: Gucci was greeted in the preoperative holding area. The correct patient and site was confirmed and marked. The history and physical was updated. The consent was reviewed the patient and signed. The patient was taken to the PACU for administration of regional anesthetic, supraclavicular block. The patient was taken to the operating room and placed in the supine position. All bony problems were well-padded. The left arm was placed onto a radiolucent hand table. A nonsterile tourniquet was placed high up on the arm. Prophylactic antibiotics in the form of cefazolin were administered. The left arm was prepped with ChloraPrep and draped in a standard fashion. A timeout was performed for safe surgery. A standard longitudinal incision was made overlying the flexor carpi radialis tendon starting at the distal wrist crease and moving proximally. The skin was incised sharply. The flexor carpi radialis tendon and its sheath is identified. The sheath was opened. The tendon was moved ulnarly in the floor of the sheath was incised. Blunt dissection the flexor pollicis longus muscle belly and tendon were also made radially exposing the pronator quadratus and the distal radius. The printer quadratus was elevated with an ulnar-based flap. This exposed the volar distal radius and the fracture. A lam elevator was used for full exposure of the volar surface of the distal radius. The primary fracture line was exposed. Using a series of elevators, curettes, and knife, the fracture was fully debrided of any fibrous tissue and callus formation. I used a freer elevator to help mobilize the fragments. I then performed a closed reduction. Using gentle traction and fracture manipulation, this reduction was held. Fluoroscopic images were used to confirm adequate reduction. A K wire was advanced to the radial styloid into the shaft of the radius. An appropriately sized Synthes volar locking plate was then placed onto the bony surface of the distal radius. Was then held there with a distal radius clamp sandwiching the plate to the distal segment. A single K wire was placed through the distal end. Fluoroscopy was once again used to confirm appropriate positioning of the plate on the distal radius. The plate was repositioned for more adequate positioning and then a reduction K wire was placed into the slotted hole on the shaft but not tightened all the way to allow for manipulation of the distal segment onto the proximal shaft. A single nonlocking screw was placed to the distal portion of the plate securing the plate against the bone of the distal radial metaphysis. Once again, the plate was evaluated to make sure it was aligned appropriately. The single screw was also checked to make sure it was in appropriate positioning for trajectory of future screws. The remainder of the screws within the volar locking plate were filled with locking screws. These were made sure not to penetrate the dorsal cortex. Once these were applied the proximal portion of the plate was further reduced down onto the shaft, which further reduce the distal segment. This was held in position with a tightened reduction K wire. Fluoroscopy was then used against confirm appropriate reduction. Nonlocking screws were placed within the 3 shaft screw holes. Final x-rays were obtained which demonstrated adequate reduction and positioning of hardware. The dorsal sunrise view was also obtained to ensure correct sizing of screws. The wound was then thoroughly irrigated. The pronator quadratus was reapproximated with a 0 Vicryl. The tourniquet was released and there was no notable vascular injury. The fingers were warm and well-perfused. The deep dermal layer was closed with a 2-0 Vicryl. The skin was closed with 4-0 nylon. The wound was dressed with Xeroform, 4 x 4's, web roll. A short arm splint was applied. At the end the case all counts are correct. Patient was transferred back to the PACU in stable condition.
== END 2021-04-18 17:20 | disposition home or self-care (01) ==
PROVIDERS: PCP Nurse Practitioner Family; Visit Provider Student in an Organized Health Care Education/Training Program
PROC: (CPT 25608; principal; 2021-04-18 15:15)
DX: S52.572A Other intraarticular fracture of lower end of left radius, initial encounter for closed fracture (principal); W00.0XXA Fall on same level due to ice and snow, initial encounter; F17.210 Nicotine dependence, cigarettes, uncomplicated; B19.20 Unspecified viral hepatitis C without hepatic coma
CPT/HCPCS: 25608; 76942; 73110; J0690; J1100; J2250; J2405; J2704

== ENCOUNTER 2021-05-01 09:37 | Outpatient (CLI) | payer MEDICAID, SELFPAY | END 2021-05-01 09:38 | disposition home or self-care (01) | LOC: DIORS 09:37 | PROVIDERS: PCP Nurse Practitioner Family; Referring Provider Nurse Practitioner Family; Visit Provider Physician Assistant ==

== ENCOUNTER 2021-09-13 07:03 | Emergency (ER) | payer MEDICAID, SELFPAY ==
[2021-09-13 07:09] VITALS: BP 126/73; PULSE 52; RESP 16; TEMP 36; O2SAT 98
--- NOTE | 2021-09-13 07:20 | ED.GENADUL_ITS ---
Discharge Plan Disposition Patient Disposition: HOME Condition: Good Discharge Details Clinical Impression: Plantar fasciitis of left foot Primary Care Provider: Leah Lyman ED Provider: Abner Berry Home Meds and New Rx's Prescriptions: Continued methadone 10 MG/ML concentrate 60 mg PO DAILY naloxone 4 mg/actuation spray,non-aerosol 1 spray NGOZI ONCE PRN (Reason: overdose) Qty: 2 0RF ibuprofen 600 mg tablet 600 mg PO TID PRN (Reason: pain) Qty: 90 3RF acetaminophen 500 mg tablet 500 mg PO Q6H PRN PRN (Reason: pain) Qty: 90 3RF Discharge Instructions Instructions: Plantar Fasciitis (ED), Plantar Fasciitis Exercises (ED) Additional Instructions: At this time you have evidence of what is called plantar fasciitis, which is irritation of the fascial/connective tissue of your foot. You can take 1000 mg of Tylenol every 6 hours and 800 mg of ibuprofen every 6 hours as needed for pain. Please be mindful that these are the maximum doses and can irritate your liver or kidneys if you take them for greater than 3 to 5 days. Please also apply the Voltaren gel cream to your foot. You can apply this 2-3 times per day. Please get shoe inserts that have good heel support and good arch support. Please do your best to stay off your foot for the next 24 hours to help with healing. Stretch your Achilles tendon and your foot tendons as I showed you to help with the pain. If you notice any worsening of your symptoms, or any new symptoms such as vomiting, diarrhea, fever, chills, shortness of breath, chest pain, numbness, weakness, or fainting , please return immediately to the emergency department for reevaluation. Please follow up with your primary care provider as soon as possible for reassessment and reevaluation. As always, it was a pleasure participating in your medical care today. Stand Alone Forms: Work Release Referrals: Leah Lyman [Primary Care Provider] - Medical Decision Making This is a pleasant 51-year-old male with a past medical history of IV drug use, hepatitis C, kidney stones, who presents today for evaluation of left heel pain. Patient states that for the last 2 to 3 days it has been present. He denies any falls or trauma. He states that it seemed to come on rather abruptly. He describes it as a aching stabbing pain on the heel. Present when walking. Improved with rest. He has not taken any Tylenol or Motrin. He does note having recently started a new job at is on a hard concrete floor that he walks daily. He denies any pain in the distal foot, or the calf or the redd. He denies any ankle pain. No other complaints at this time. No other modifying factors. Physical exam demonstrates tenderness over the plantar aspect of the calcaneus and the lateral aspect of the plantar fascia on the left foot. No redness or warmth to suggest cellulitis. No evidence of significant trauma. We will get an x-ray. Sure there is no evidence of unexpected calcaneal fracture or mass. Symptoms at this time though appear notably clinically consistent with plantars fasciitis. Will recommend arch support, stretching, topical and oral NSAIDs and ice and good footwear. X-ray shows no evidence of fracture or other significant abnormality. Patient will be discharged home. Discussed red flags which to return. I have extensively reviewed the treatment plan and discharge instructions with the patient. I have addressed all patient concerns at this time. The patient was made aware of what symptoms to monitor for that would warrant a return to the emergency department. Discussed the plan with the patient, they demonstrate verbal understanding and agreement with our assessment and plan at this time. The documentation in this chart was dictated using [employer] dictation software. Please excuse any dictation errors. HPI General Date/Time Provider Initiated Documentation: 09/13/21 07:05 . HPI Narrative: This is a pleasant 51-year-old male with a past medical history of IV drug use, hepatitis C, kidney stones, who presents today for evaluation of left heel pain. Patient states that for the last 2 to 3 days it has been present. He denies any falls or trauma. He states that it seemed to come on rather abruptly. He describes it as a aching stabbing pain on the heel. Present when walking. Improved with rest. He has not taken any Tylenol or Motrin. He does note having recently started a new job at is on a hard concrete floor that he walks daily. He denies any pain in the distal foot, or the calf or the redd. He denies any ankle pain. No other complaints at this time. No other modifying factors. Related Data Home Medications Medication Instructions Recorded Confirmed methadone 10 mg/mL oral concentrate 60 mg PO DAILY 03/11/16 05/19/22 naloxone 4 mg/actuation nasal spray 1 spray intranasal ONCE PRN 09/19/18 09/13/21 overdose #2 ea acetaminophen 500 mg tablet 500 mg PO Q6H PRN PRN pain #90 tabs 04/18/21 09/13/21 ibuprofen 600 mg tablet 600 mg PO TID PRN pain #90 tabs 04/18/21 09/13/21 Previous Rx's Medication Instructions Recorded naloxone 4 mg/actuation nasal spray 1 spray intranasal ONCE PRN 09/19/18 overdose #2 ea acetaminophen 500 mg tablet 500 mg PO Q6H PRN PRN pain #90 tabs 04/18/21 ibuprofen 600 mg tablet 600 mg PO TID PRN pain #90 tabs 04/18/21 Allergies Allergy/AdvReac Type Severity Reaction Status Date / Time codeine Allergy Skin Rash Unverified 04/18/21 12:14 bee stings Allergy Uncoded 09/13/21 07:20 General Stated Complaint: Orthopedic ADALBERTO: 4 Review of Systems All systems reviewed & are unremarkable except as noted in HPI and below PFSH All Active Problems (Updated 09/13/21 @ 07:25 by Abner Berry DO) Plantar fasciitis of left foot (Acute) Nausea (Acute) Viral illness (Acute) Closed fracture of left wrist (Acute) Medical History Hepatitis C IV drug user Pt. states last use was 04/17/2021 Kidney stones Surgical History Broken jaw Social History Smoking/Tobacco Use Status: Current every day Tobacco Type: cigarettes Smoking risk assessment performed?: Yes Alcohol Intake: former Drug use: Daily Substance use type: marijuana, crack/cocaine, heroin, IV drugs, prescription drug and other Details: occasional IV drug user - last use heroin 2 weeks ago Details: Bita--methadone IV Drug use Fentanyl last use 04/17/21 dosage unknown Do you feel safe at home: Yes Do you feel safe in your relationship?: Yes Exam Narrative Exam Narrative: 1.Const: Well-nourished, Well-developed, appearing stated age 2.Eyes: PERRL, no conjunctival injection, and symmetrical lids. 3.ENT: Atraumatic external nose and ears. Moist MM. Neck: Symmetric, trachea midline, No thyromegaly. 4.CVS: +S1/S2, No murmurs or gallops. Peripheral pulses 2+ and equal in all extremities. Brisk capillary refill in all extremities. 5.RESP: Unlabored respiratory effort. Clear to auscultation bilaterally. No wheezes rales or rhonchi 6.GI: Soft, Nontender/Nondistended, No hepatosplenomegaly. No guarding or rebound. 7.MSK: Normocephalic/Atraumatic, Extremities w/o deformity. No cyanosis or clubbing, Normal movement of all extremities. Left foot demonstrates no redness erythema or edema. Patient does have point tenderness over the plantar aspect of the calcaneus as well as the lateral aspect of the plantar fascia close to the heel. No tenderness over the Achilles tendon. No bony tenderness over the foot. When the patient is standing, his right foot is notably flat compared to his left foot. Left foot is much more elevated arch. Patient demonstrates good movement otherwise, good sensation. Good vascular flow. 8.Skin: Warm, Dry. No rashes or lesions. 9.Neuro: automation technologist II-XII grossly intact. Sensation grossly intact, no focal neurol ogic deficits. 10.Psych: (AAO) x3. Appropriate mood and affect Course Vital Signs Vital signs: Vital Signs Temperature 36 C L 09/13/21 07:09 Pulse 52 L 09/13/21 07:09 Respiratory Rate 16 09/13/21 07:09 Blood Pressure 126/73 09/13/21 07:09 Pulse Oximetry 98 09/13/21 07:09 Temperature 36 C L 09/13/21 07:09 Temperature Source Temporal Artery Scan 09/13/21 07:09 Pulse 52 L 09/13/21 07:09 Respiratory Rate 16 09/13/21 07:09 Respiratory Effort 09/13/21 07:09 Blood Pressure 126/73 09/13/21 07:09 Blood Pressure Position Sitting 09/13/21 07:09 Pulse Oximetry 98 09/13/21 07:09 Oxygen Delivery Method Room Air 09/13/21 07:09 Oxygen Flow Rate 0 09/13/21 07:09 Pain Level 9 09/13/21 07:09
[2021-09-13] MEDS: Acetaminophen 500 MG TAB 1000 MG PO (07:33)
[2021-09-13] MEDS: Ibuprofen 800 MG TAB PO (07:33)
[2021-09-13] MEDS: Diclofenac 1% Gel 100 GM TUBE TP (07:33)
--- NOTE | 2021-09-13 07:36 | DI.RAD_ITS ---
Exam(s) XR HEEL LT OS CALCIS EXAM: XR HEEL LT OS CALCIS CLINICAL HISTORY: inferior calcaneous pain, suspect plantar fascitis. TECHNIQUE: 2D digital imaging was performed. Two images were obtained. COMPARISON: No exams were available for comparison FINDINGS: BONES: No acute fracture is present. No bony destructive lesion is seen. JOINTS: No dislocation present. SOFT TISSUE: Normal. IMPRESSION: Unremarkable radiographs of the left calcaneus. DATA REPOSITORY: RADIATION DOSE DELIVERED:
--- NOTE | 2021-09-13 08:51 | DI.VRAD_ITS ---
PROCEDURE INFORMATION: Exam: XR Left Calcaneus Exam date and time: 09/13/2021 7:34 AM Age: 51 years old Clinical indication: Heel; Left; Patient HX: Inferior calcaneous pain. Suspect plantar fascitis. TECHNIQUE: Imaging protocol: XR of the Left calcaneus. Views: 2 or more views. COMPARISON: No relevant prior studies available. FINDINGS: Bones/joints: No acute fracture or bony destruction. Joint spaces are maintained. Soft tissues: No acute abnormality. IMPRESSION: No acute osseous abnormality. Dictated and Authenticated by: Maris Dixon MD. Ordering:SANCHEZ Levine MD
== END 2021-09-13 07:50 | disposition home or self-care (01) ==
PROVIDERS: Emergency Provider Student in an Organized Health Care Education/Training Program; PCP Nurse Practitioner Family
DX: M72.2 Plantar fascial fibromatosis (principal)
CPT/HCPCS: 99283; 73650

== ENCOUNTER 2022-05-03 06:14 | Emergency (ER) | payer MEDICAID, SELFPAY ==
[2022-05-03 06:19] VITALS: BP 110/79; PULSE 69; RESP 16; TEMP 36.7; O2SAT 98
--- NOTE | 2022-05-03 06:32 | ED.GENADUL_ITS ---
Discharge Plan Disposition Patient Disposition: Home Condition: Stable Discharge Details Clinical Impression: Vomiting, Abdominal pain, Pancreatitis Primary Care Provider: Leah Lyman ED Provider: Geovany Lovett Home Meds and New Rx's Prescriptions: New metoclopramide HCl [Reglan] 10 mg tablet 10 mg PO Q6H PRNQty: 10 0RF Continued methadone 10 MG/ML concentrate 80 mg PO DAILY naloxone 4 mg/actuation spray,non-aerosol 1 spray NGOZI ONCE PRN (Reason: overdose) Qty: 2 0RF ibuprofen 600 mg tablet 600 mg PO TID PRN (Reason: pain) Qty: 90 3RF acetaminophen 500 mg tablet 500 mg PO Q6H PRN PRN (Reason: pain) Qty: 90 3RF Discharge Instructions Instructions: Pancreatitis (ED), Abdominal Pain (ED) Additional Instructions: CT of the abdomen pelvis today revealed mild inflammation of your pancreas. Pancreatic enzyme level was normal. I recommend that you maintain bowel rest today. Clear liquid fluids only today and tomorrow. You may advance your diet to bland foods like rice tomorrow night. Maintain bland foods like rice and clear liquids for the following 2 days and then continue to advance daily thereafter as tolerated. Please follow-up with your primary care physician. Call today to arrange timely follow-up. Return to the emergency department immediately for any worsening or new concerning symptoms. Stand Alone Forms: Work Release Referrals: eLah Lyman [Primary Care Provider] - Discharge Data Discharge Date/Time-TO BE ENTERED AT DEPARTURE: 05/03/22 10:26 Medical Decision Making 0630 -- 52-year-old male with history of opiate use on methadone with reported history of still occasionally using IV opiates and hepatitis C presents with 2 days of vomiting, diarrhea and abdominal pain. Patient appears comfortable and nontoxic. His vitals are within normal limits. His abdomen is soft and mainly tender in the lower quadrants. He has no rigidity or guarding. He states his symptoms do not appear consistent with opiate withdrawal although he reports he has not had his methadone for 2 days. He does not demonstrate signs of withdrawal. Differential diagnosis includes gastritis, gastroenteritis, colitis, influenza. Will place an IV, bolus IV fluids, screening labs, urinalysis, CT abdomen and pelvis and give IV Tylenol, IV Toradol, IV Phenergan and reassess. 0810 -- Case endorsed to Dr. Lovett to follow-up on labs and imaging and final disposition. Medical Records Medical records reviewed: Yes I reviewed the patient's medical records. HPI General Mode of arrival: ambulatory . Date/Time Provider Initiated Documentation: 05/03/22 06:30 . Limitations to Documentation: no limitations . Information obtained by: patient . HPI Narrative: Patient is a 52-year-old male with a history of hepatitis C, opiate use on methadone but still currently uses IV opiates presents with 2 days of nausea, v omiting, diarrhea and abdominal pain. Patient describes the abdominal pain as intermittent, cramping and diffuse. He states the pain is currently 2/10 but 6/10 at its worst. He states he has had mainly loose brown stools. He states his vomitus is mainly been bile. He also admits to feeling lightheaded yesterday when attempting to get off the couch. He denies any known fever, cough, chest pain, difficulty breathing or urinary symptoms. He states he has not taken any medication for symptoms. He states he has not had his methadone for the past 2 days as he was planning on getting his dose this morning after his ER visit and was unable to get his dose yesterday due to his symptoms of vomiting. Patient states his current symptoms do not appear consistent with opiate withdrawal as he states he usually experiences chills and does not get symptoms of vomiting or lightheadedness. Related Data Home Medications Medication Instructions Recorded Confirmed methadone 10 mg/mL oral concentrate 80 mg PO DAILY 07/07/15 05/03/22 naloxone 4 mg/actuation nasal spray 1 spray intranasal ONCE PRN 09/19/18 05/03/22 overdose #2 ea acetaminophen 500 mg tablet 500 mg PO Q6H PRN PRN pain #90 tabs 04/18/21 05/03/22 ibuprofen 600 mg tablet 600 mg PO TID PRN pain #90 tabs 04/18/21 05/03/22 metoclopramide HCl 10 mg tablet 10 mg PO Q6H PRN #10 tabs 05/03/22 (Reglan) Previous Rx's Medication Instructions Recorded naloxone 4 mg/actuation nasal spray 1 spray intranasal ONCE PRN 09/19/18 overdose #2 ea acetaminophen 500 mg tablet 500 mg PO Q6H PRN PRN pain #90 tabs 04/18/21 ibuprofen 600 mg tablet 600 mg PO TID PRN pain #90 tabs 04/18/21 metoclopramide HCl 10 mg tablet 10 mg PO Q6H PRN #10 tabs 05/03/22 (Reglan) Allergies Allergy/AdvReac Type Severity Reaction Status Date / Time codeine Allergy Skin Rash Unverified 05/03/22 06:22 bee stings Allergy Uncoded 05/03/22 06:22 General Stated Complaint: Nausea/Vomit/Diar ADALBERTO: 3 Review of Systems All systems reviewed & are unremarkable except as noted in HPI and below Constitutional Constitutional: Reports as per HPI, Denies chills and Denies fever(s) Eyes Eyes: Denies blurry vision ENT Ears, Nose, Mouth, and Throat: Denies dizziness, Denies sore throat and Denies throat swelling Cardiovascular Cardiovascular: Denies chest pain and Denies dyspnea Respiratory Respiratory: Denies cough and Denies dyspnea Gastrointestinal Gastrointestinal: Reports abdominal pain, Reports diarrhea, Reports nausea and Reports vomiting Genitourinary Genitourinary: Denies hematuria and Denies dysuria Musculoskeletal Musculoskeletal: Denies back pain and Denies numbness Integumentary/Breasts Skin/Breast: Denies lesions and Denies rash Neurologic Neurologic: Denies dizziness, Denies localized weakness and Denies numbness Allergic/Immunologic Allergic/Immunologic: Denies throat swelling PFSH All Active Problems (Updated 05/03/22 @ 10:12 by Geovany Lovett MD) Vomiting (Acute) Abdominal pain (Acute) Pancreatitis (Chronic) Nausea (Acute) Viral illness (Acute) Closed fracture of left wrist (Acute) Medical History Hepatitis C IV drug user Pt. states last use was 04/17/2021 Kidney stones Surgical History Broken jaw Social History Smoking/Tobacco Use Status: Current every day Tobacco Type: cigarettes Smoking risk assessment performed?: Yes Alcohol Intake: former Drug use: Daily Substance use type: marijuana, crack/cocaine, heroin, opiates, IV drugs, prescription drug and other Details: occasional IV drug user - last use heroin 2 weeks ago Details: Baart--methadone IV Drug use Fentanyl last use 04/17/21 dosage unknown Do you feel safe at home: Yes Do you feel safe in your relationship?: Yes Exam Const General: cooperative and no acute distress Orientation: alert, awake and oriented x3 HENMT Head: normal to inspection Eyes General: appearance normal, both eyes and all related structures Pupils: PERRL EOM: EOM intact bilaterally Neck Neck: normal visual inspection and No submandibular swelling Lymphatic: no lymphadenopathy noted Chest Chest: normal inspection of the chest and no tenderness Resp Effort & Inspection: normal respiratory effort and able to speak in complete s entences Auscultation: clear to auscultation bilaterally Cardio Rate: regular rate Rhythm: regular rhythm GI Inspection: normal to inspection Palpation: soft, not firm, not rigid and tender in the LLQ, in the RLQ and suprapubicly Auscultation: hypoactive bowel sounds Skin General skin exam: no rashes or lesions noted Neuro General: patient alert, patient awake and patient oriented x3 Cognition: normal cognition Speech: speech normal Motor: muscle tone normal throughout Sensory Exam: no sensory deficits noted Extrem General: normal to inspection, full ROM, capillary refill normal, no calf tenderness bilaterally and no edema Psych Appearance: grossly normal Mental Status: mental status grossly normal Speech and Movement: speech and movement normal Affect: normal affect Course Vital Signs Vital signs: Vital Signs Temperature 98.1 F 05/03/22 06:19 Pulse 69 05/03/22 06:19 Respiratory Rate 16 05/03/22 06:19 Blood Pressure 110/79 05/03/22 06:19 Pulse Oximetry 98 05/03/22 06:19 Temperature 98.1 F 05/03/22 06:19 Temperature Source Temporal Artery Scan 05/03/22 06:19 Pulse 69 05/03/22 06:19 Respiratory Rate 16 05/03/22 06:19 Respiratory Effort 05/03/22 06:19 Blood Pressure 110/79 05/03/22 06:19 Blood Pressure Position Sitting 05/03/22 06:19 Pulse Oximetry 98 05/03/22 06:19 Oxygen Delivery Method Room Air 05/03/22 06:19 Oxygen Flow Rate 0 05/03/22 06:19 Pain Level 6 05/03/22 06:19 Sign Out Sign Out Data: Sign Out Comment: History of IV drug use but also taking methadone. 2 days of vomiting, diarrhea and abdominal pain. Follow-up on labs and imaging and final disposition. Last updated by Lorrie Hand DO at 05/03/22 07:13
[2022-05-03 06:59] LABS: Abs Immature Grans 0.01 10^3/uL (0.0-0.06); Absolute Basophil Count 0.02 10^3/uL (0.0-0.2); Absolute Eosinophil Count 0.16 10^3/uL (0.0-0.7); Absolute Lymphocyte Count 1.74 10^3/uL (1.2-3.4); Absolute Monocyte Count 0.38 10^3/uL (0.1-0.8); Absolute Neutrophil Count 2.31 10^3/uL (1.2-6.7); Basophils % 0.4; Eosinophils % 3.5; HCT 43.5 % (40.0-50.0); HGB 14.3 g/dL (13.5-17.5); Immature Grans % 0.2; Lymphocytes % 37.7; MCH 29.7 pg (27.0-33.0); MCHC 32.9 % (32.0-36.0); MCV 90 fL (80-95); MPV 8.9 fL (8.0-11.0); Monocytes % 8.2; Platelet Count 226 10^3/uL (130-400); RBC 4.81 10^6/uL (4.36-5.78); RDW 12.1 % (11.8-14.1); RDW-SD 40.6 fL; WBC 4.62 10^3/uL (4.4-10.8)
[2022-05-03 07:11] LABS: ALT 43 U/L (16-63); AST 39 U/L (15-37); Albumin 3.7 g/dL (3.4-5.0); Alkaline Phosphatase 110 U/L (46-116); Anion Gap 3.5 mmol/L (3-11); BUN 12 mg/dL (7-18); Bilirubin, Total 0.3 mg/dL (0.2-1.0); CO2 33.5 mmol/L (21.0-32.0); CREATININE 0.9 mg/dL (0.70-1.30); Chloride 102 mmol/L (98-107); Estimated GFR 104.05 (mL/min/1.73m2); Glucose 107 mg/dL (74-106); Lipase 67 U/L (73-393); Potassium 4.3 mmol/L (3.5-5.1); Sodium 139 mmol/L (136-145)
[2022-05-03] MEDS: Ketorolac 30 MG/ML VIAL IVP (07:26)
[2022-05-03] MEDS: Normal Saline Flush 10 ML SYR IVP (07:27)
--- NOTE | 2022-05-03 07:33 | DI.CT_ITS ---
Exam(s) CT ABDOMEN PELVIS W EXAM: CT ABDOMEN PELVIS W CLINICAL HISTORY: vomiting, diarrhea, abdominal pain, r/o colitis. TECHNIQUE: Imaging Protocol: Axial computed tomography images with coronal and sagittal reformatted images were created and reviewed CONTRAST MATERIAL: Intravenous: Omnipaque 350 Contrast volume:100 ml Oral: yes COMPARISON: No exams were available for comparison FINDINGS: ABDOMEN: Lung Bases: Mild dependent changes. Liver: Normal density. No measurable mass. Gallbladder and biliary tract: No visible calculi or wall thickening. Mild dilatation of the common bile duct. No stone or mass visible. Pancreas: Question of inflammation at the pancreatic head. Spleen: Normal. Kidneys: Normal size, contour and axis. No radiodense stones or obstructive uropathy. No masses seen. Adrenal glands: No masses seen. Abdominal Aorta: Abdominal portion non-dilated. PELVIS: Bladder: No gross wall thickening. No calculi.No focal mass. Bowel: Large quantity of stool. No obstruction or bowel wall thickening. Appendix normal. Peritoneal cavity: No ascites, collection or mesenteric inflammatory response. Bones: Within normal limits for age. Reproductive organs: Within normal limits. Lymph nodes: Unremarkable. Impression: Question of mild pancreatic inflammation. Mild nonspecific dilatation of the common bile duct withou t evidence of obstructing stone. No evidence of gallstones or acute cholecystitis. RADIATION DOSE DELIVERED: 979.29mGy.cm Total DLP DATA REPOSITORY: All CT scans at this facility are submitted to the National Radiology Data Registry (NRDR) Dose Index Registry (DIR) with the [employer] (A[employer]). RADIATION OPTIMIZATION: All CT scans at this facility use at least one of these dose optimization te chniques: automated exposure control; mA and/or kV adjustment per patient size (includes targeted exa ms where dose is matched to clinical indication); or iterative reconstruction.
[2022-05-03] MEDS: Normal Saline 1,000 ML 1000 ML IV (07:42)
[2022-05-03] MEDS: Normal Saline - Diluent 50 ML VIAL IV (07:50)
[2022-05-03] MEDS: Omnipaque 350 MG/ML 500 ML BTL-Imaging package 100 ML IJ (07:51)
[2022-05-03 08:00] VITALS: TEMP 36.7
[2022-05-03] MEDS: ACETAMINOPHEN 1,000 MG/100 ML BTL 400 MG IVPB (08:00)
[2022-05-03 08:59] LABS: Bilirubin Negative (Negative); Blood Negative (Negative); Clarity Clear (Clear); Glucose Negative (Negative); Ketones Negative (Negative); Leukocyte Esterase Negative (Negative); Nitrite Negative (Negative); Specific Gravity 1.015 (1.005-1.025)
--- NOTE | 2022-05-03 09:15 | DI.VRAD_ITS ---
PROCEDURE INFORMATION: Exam: CT Abdomen And Pelvis With Contrast Exam date and time: 05/03/2022 7:33 AM Age: 52 years old Clinical indication: Generalized; Patient HX: Vomiting, diarrhea, abdominal pain. R/O colitis. TECHNIQUE: Imaging protocol: Computed tomography of the abdomen and pelvis with contrast. 1307image(s) are provided. Radiation optimization: All CT scans at this facility use at least one of these dose optimization techniques: automated exposure control; mA and/or kV adjustment per patient size (includes targeted exams where dose is matched to clinical indication); or iterative reconstruction. Contrast material: OMNI-PAQUE 350; Contrast volume: 100 ml; Contrast route: INTRAVENOUS (IV); Other technique: Axial images are available with sagittal and coronal reconstruction views. Automated dose exposure control is utilized. The DLP is 979.0. COMPARISON: US ABDOMEN 09/19/2018 10:47 AM FINDINGS: Lungs: There is some patchy subsegmental atelectasis at the lung bases.No lobar consolidation is appreciated. Liver: There is some mild hepatic steatosis hepatomegaly appearance along with some periportal tracking. Gallbladder and bile ducts: The gallbladder is slightly contracted. The common bile duct at the level distally measures approximally 8 mm although no radiopaque obstructive calculus at this site is currently appreciated. Pancreas: There is also subtle stranding about the proximal pancreas head level. Spleen: Unremarkable. Adrenal glands: Unremarkable. Kidneys and ureters: No radiopaque obstructive calculus or hydronephrosis is appreciated. Stomach and bowel: Some aspects of the colon are undistended. This may also be peristaltic related.There is abundant stool present limiting mucosal detail evaluation. There is a small sliding-type hiatal hernia demonstrated with slight gastroesophageal fold thickening. There are some borderline small bowel loops for example central left upper quadrant measuring approximally 3.1 cm. Appendix: No evidence of appendicitis. Intraperitoneal space: No free air or free fluid collections are appreciated. Vasculature: No abdominal aortic aneurysmal dilatation or periaortic fluid is appreciated. Lymph nodes: There are some reactive appearing periaortic mesenteric lymph nodes.This can be seen with previous inflammation or adenitis sequela. Urinary bladder: The bladder is incompletely fluid filled for evaluation which may exagerate the wall thickness. This can also be seen with post inflammation sequela. Reproductive: Unremarkable as visualized. Bones/joints: No fracture or dislocation is appreciated. Soft tissues: Unremarkable. Other findings: No other significant interval changes are appreciated. IMPRESSION: 1. The common bile duct measures approximally 8 mm with no radiopaque obstructive calculus which appears larger as compared to the previous ultrasound description. There is also subtle periportal tracking. No radiopaque obstructive calculus at this site is currently appreciated. 2. There is some subtle periportal and peripancreatic stranding demonstrated which could be seen with some early inflammation including pancreatitis. 3. There is an unremarkable appearance of the appendix demonstrated. 4. There are some borderline small bowel loops for example central left upper quadrant.Consider if there is a history of diarrhea or gastroenteritis. 5. There is a large amount of stool present suggestive of constipation. 6. Some aspects of the colon are undistended. This may also be peristaltic related. Some element of chronic inflammation as well as narrowing could also present in this fashion on this single phase study including at the ascending colon level. Consider colonoscopy. Dictated and Authenticated by: Emeka Weber MD. Ordering:TIEN Andrew MD
[2022-05-03 09:16] VITALS: BP 108/63; PULSE 46; RESP 14; TEMP 36.6; O2SAT 99
--- NOTE | 2022-05-03 10:06 | ED.GENADUL_ITS ---
Discharge Plan Discharge Details Chief Complaint: Nausea/Vomit/Diar Primary Care Provider: Leah Lyman ED Provider: Geovany Lovett Home Meds and New Rx's Prescriptions: No Action methadone 10 MG/ML concentrate 80 mg PO DAILY naloxone 4 mg/actuation spray,non-aerosol 1 spray NGOZI ONCE PRN (Reason: overdose) Qty: 2 0RF ibuprofen 600 mg tablet 600 mg PO TID PRN (Reason: pain) Qty: 90 3RF acetaminophen 500 mg tablet 500 mg PO Q6H PRN PRN (Reason: pain) Qty: 90 3RF HPI General Mode of arrival: ambulatory . Date/Time Provider Initiated Documentation: 05/03/22 06:30 . Limitations to Documentation: no limitations . Information obtained by: patient . Related Data Home Medications Medication Instructions Recorded Confirmed methadone 10 mg/mL oral concentrate 80 mg PO DAILY 07/07/15 05/03/22 naloxone 4 mg/actuation nasal spray 1 spray intranasal ONCE PRN 09/19/18 05/03/22 overdose #2 ea acetaminophen 500 mg tablet 500 mg PO Q6H PRN PRN pain #90 tabs 04/18/21 05/03/22 ibuprofen 600 mg tablet 600 mg PO TID PRN pain #90 tabs 04/18/21 05/03/22 Previous Rx's Medication Instructions Recorded naloxone 4 mg/actuation nasal spray 1 spray intranasal ONCE PRN 09/19/18 overdose #2 ea acetaminophen 500 mg tablet 500 mg PO Q6H PRN PRN pain #90 tabs 04/18/21 ibuprofen 600 mg tablet 600 mg PO TID PRN pain #90 tabs 04/18/21 Allergies Allergy/AdvReac Type Severity Reaction Status Date / Time codeine Allergy Skin Rash Unverified 05/03/22 06:22 bee stings Allergy Uncoded 05/03/22 06:22 General Stated Complaint: Nausea/Vomit/Diar ADALBERTO: 3 PFSH All Active Problems (Updated 10/14/21 @ 00:03 by PEPITO ECHEVERRIA) Nausea (Acute) Viral illness (Acute) Closed fracture of left wrist (Acute) Medical History Hepatitis C IV drug user Pt. states last use was 04/17/2021 Kidney stones Surgical History Broken jaw Social History Smoking/Tobacco Use Status: Current every day Tobacco Type: cigarettes Smoking risk assessment performed?: Yes Alcohol Intake: former Drug use: Daily Substance use type: marijuana, crack/cocaine, heroin, opiates, IV drugs, prescription drug and other Details: occasional IV drug user - last use heroin 2 weeks ago Details: Baart--methadone IV Drug use Fentanyl last use 04/17/21 dosage unknown Do you feel safe at home: Yes Do you feel safe in your relationship?: Yes Course Vital Signs Vital signs: Vital Signs Temperature 36.7 C 05/03/22 06:19 Pulse 69 05/03/22 06:19 Respiratory Rate 16 05/03/22 06:19 Blood Pressure 110/79 05/03/22 06:19 Pulse Oximetry 98 05/03/22 06:19 Temperature 36.6 C 05/03/22 09:16 Temperature Source Skin 05/03/22 09:16 Pulse 46 L 05/03/22 09:16 Respiratory Rate 14 05/03/22 09:16 Respiratory Effort 05/03/22 06:19 Blood Pressure 108/63 05/03/22 09:16 Blood Pressure Position Sitting 05/03/22 06:19 Pulse Oximetry 99 05/03/22 09:16 Oxygen Delivery Method Room Air 05/03/22 09:16 Oxygen Flow Rate 0 05/03/22 09:16 Pain Level 2 05/03/22 09:16 Comment 05/03/22 09:16 Lab/Test Results Lab/Test Results: Laboratory Tests Range/Units 05/03/22 05/03/22 05/03/22 06:45 06:45 08:55 WBC (4.4-10.8) 10^3/uL 4.62 RBC (4.36-5.78) 10^6/uL 4.81 Hgb (13.5-17.5) g/dL 14.3 Hct (40.0-50.0) % 43.5 MCV (80-95) fL 90 MCH (27.0-33.0) pg 29.7 MCHC (32.0-36.0) % 32.9 RDW (11.8-14.1) % 12.1 Plt Count (130-400) 10^3/uL 226 MPV (8.0-11.0) fL 8.9 Immature Gran % 0.2 Neutrophils % 50.0 Lymphocytes % 37.7 Monocytes % 8.2 Eosinophils % 3.5 Basophils % 0.4 Nucleated RBC % (0.0-0.3) % 0.0 Absolute Neutrophils (1.2-6.7) 10^3/uL 2.31 Absolute Lymphocytes (1.2-3.4) 10^3/uL 1.74 Absolute Monocytes (0.1-0.8) 10^3/uL 0.38 Absolute Eosinophils (0.0-0.7) 10^3/uL 0.16 Absolute Basophils (0.0-0.2) 10^3/uL 0.02 Sodium (136-145) mmol/L 139 Potassium (3.5-5.1) mmol/L 4.3 Chloride (98-107) mmol/L 102 Carbon Dioxide (21.0-32.0) mmol/L 33.5 H Anion Gap (3-11) mmol/L 3.5 BUN (7-18) mg/dL 12 Creatinine (0.70-1.30) mg/dL 0.9 Est GFR (CKD-EPI 2020) (mL/min/1.73m2) 104.05 Glucose (74-106) mg/dL 107 H Calcium (8.5-10.1) mg/dL 9.0 Total Bilirubin (0.2-1.0) mg/dL 0.3 AST (15-37) U/L 39 H ALT (16-63) U/L 43 Alkaline Phosphatase (46-116) U/L 110 Total Protein (6.4-8.2) g/dL 8.0 Albumin (3.4-5.0) g/dL 3.7 Lipase (73-393) U/L 67 Urine Color (Yellow) Yellow Urine Clarity (Clear) Clear Urine pH (5-8) 6.0 Ur Specific [place] (1.005-1.025) 1.015 Urine Protein (Negative) mg/dL Negative Urine Ketones (Negative) mg/dL Negative Urine Blood (Negative) Negative Urine Nitrite (Negative) Negative Urine Bilirubin (Negative) Negative Urine Urobilinogen (Up TO 0.2) EU/dL 1.0 H Ur Leukocyte Esterase (Negative) Negative Urine Glucose (Negative) mg/dL Negative Sign Out Sign Out Data: Sign Out Comment: History of IV drug use but also taking methadone. 2 days of vomiting, diarrhea and abdominal pain. Follow-up on labs and imaging and final disposition. Last updated by Lorrie Hand DO at 05/03/22 07:13
--- NOTE | 2022-05-03 10:06 | W.EDPROG ---
Date of service: 05/03/22 Time of Service: 10:06 Medical Decision Making Care was signed out by Dr. Hand, plan to follow-up on CT of the abdomen pelvis. Labs were reviewed and nondiagnostic. No leukocytosis. LFTs within normal limits other than slight elevation of AST to 39. Lipase normal. CT of the abdomen pelvis was interpreted by radiology: Question of mild pancreatic inflammation.? Mild nonspecific dilatation of the common bile duct without evidence of obstructing stone.? No evidence of gallstones or acute cholecystitis. Patient was reassessed appears comfortable, resting in bed. Plan for discharge with close outpatient follow-up. I recommended bowel rest and to clear liquids only today. Advance slowly to bland foods tomorrow. Lab Data Lab results reviewed: Yes I reviewed the patient's lab results. Labs: Laboratory Tests Range/Units 05/03/22 05/03/22 05/03/22 06:45 06:45 08:55 WBC (4.4-10.8) 10^3/uL 4.62 RBC (4.36-5.78) 10^6/uL 4.81 Hgb (13.5-17.5) g/dL 14.3 Hct (40.0-50.0) % 43.5 MCV (80-95) fL 90 MCH (27.0-33.0) pg 29.7 MCHC (32.0-36.0) % 32.9 RDW (11.8-14.1) % 12.1 Plt Count (130-400) 10^3/uL 226 MPV (8.0-11.0) fL 8.9 Immature Gran % 0.2 Neutrophils % 50.0 Lymphocytes % 37.7 Monocytes % 8.2 Eosinophils % 3.5 Basophils % 0.4 Nucleated RBC % (0.0-0.3) % 0.0 Absolute Neutrophils (1.2-6.7) 10^3/uL 2.31 Absolute Lymphocytes (1.2-3.4) 10^3/uL 1.74 Absolute Monocytes (0.1-0.8) 10^3/uL 0.38 Absolute Eosinophils (0.0-0.7) 10^3/uL 0.16 Absolute Basophils (0.0-0.2) 10^3/uL 0.02 Sodium (136-145) mmol/L 139 Potassium (3.5-5.1) mmol/L 4.3 Chloride (98-107) mmol/L 102 Carbon Dioxide (21.0-32.0) mmol/L 33.5 H Anion Gap (3-11) mmol/L 3.5 BUN (7-18) mg/dL 12 Creatinine (0.70-1.30) mg/dL 0.9 Est GFR (CKD-EPI 2020) (mL/min/1.73m2) 104.05 Glucose (74-106) mg/dL 107 H Calcium (8.5-10.1) mg/dL 9.0 Total Bilirubin (0.2-1.0) mg/dL 0.3 AST (15-37) U/L 39 H ALT (16-63) U/L 43 Alkaline Phosphatase (46-116) U/L 110 Total Protein (6.4-8.2) g/dL 8.0 Albumin (3.4-5.0) g/dL 3.7 Lipase (73-393) U/L 67 Urine Color (Yellow) Yellow Urine Clarity (Clear) Clear Urine pH (5-8) 6.0 Ur Specific [place] (1.005-1.025) 1.015 Urine Protein (Negative) mg/dL Negative Urine Ketones (Negative) mg/dL Negative Urine Blood (Negative) Negative Urine Nitrite (Negative) Negative Urine Bilirubin (Negative) Negative Urine Urobilinogen (Up TO 0.2) EU/dL 1.0 H Ur Leukocyte Esterase (Negative) Negative Urine Glucose (Negative) mg/dL Negative Sign Out Sign Out Data: Sign Out Comment: History of IV drug use but also taking methadone. 2 days of vomiting, diarrhea and abdominal pain. Follow-up on labs and imaging and final disposition. Last updated by Lorrie Hand DO at 05/03/22 07:13 Discharge Plan Disposition Patient Disposition: Home Condition: Stable Discharge Details Clinical Impression: Vomiting, Abdominal pain, Pancreatitis Primary Care Provider: Leah Lyman ED Provider: Geovany Lovett Home Meds and New Rx's Prescriptions: New metoclopramide HCl [Reglan] 10 mg tablet 10 mg PO Q6H PRNQty: 10 0RF Continued methadone 10 MG/ML concentrate 80 mg PO DAILY naloxone 4 mg/actuation spray,non-aerosol 1 spray NGOZI ONCE PRN (Reason: overdose) Qty: 2 0RF ibuprofen 600 mg tablet 600 mg PO TID PRN (Reason: pain) Qty: 90 3RF acetaminophen 500 mg tablet 500 mg PO Q6H PRN PRN (Reason: pain) Qty: 90 3RF Discharge Instructions Instructions: Pancreatitis (ED), Abdominal Pain (ED) Additional Instructions: CT of the abdomen pelvis today revealed mild inflammation of your pancreas. Pancreatic enzyme level was normal. I recommend that you maintain bowel rest today. Clear liquid fluids only today and tomorrow. You may advance your diet to bland foods like rice tomorrow night. Maintain bland foods like rice and clear liquids for the following 2 days and then continue to advance daily thereafter as tolerated. Please follow-up with your primary care physician. Call today to arrange timely follow-up. Return to the emergency department immediately for any worsening or new concerning symptoms. Stand Alone Forms: Work Release Referrals: Leah Lyman [Primary Care Provider] - Discharge Data Discharge Date/Time-TO BE ENTERED AT DEPARTURE: 05/03/22 10:26
[2022-05-03 10:22] VITALS: BP 107/69; PULSE 47; RESP 16; TEMP 36.5; O2SAT 98
== END 2022-05-03 10:26 | disposition home or self-care (01) ==
PROVIDERS: Physician Assistant; Emergency Provider Student in an Organized Health Care Education/Training Program; PCP Nurse Practitioner Family
DX: K85.90 Acute pancreatitis without necrosis or infection, unspecified (principal); R74.01 Elevation of levels of liver transaminase levels; K83.8 Other specified diseases of biliary tract
CPT/HCPCS: 80053; 83690; 96361; 96374; 96375; 99285; 74177; 81003; 85025; 99284; J0131; J1885

== ENCOUNTER 2022-09-16 06:26 | Emergency (ER) | payer MEDICAID, SELFPAY ==
[2022-09-16 06:30] VITALS: BP 133/83; PULSE 59; RESP 20; TEMP 37.8; O2SAT 98
--- NOTE | 2022-09-16 06:39 | ED.GENADUL_ITS ---
Discharge Plan Discharge Details Chief Complaint: Cellulitis Clinical Impression: Edema, peripheral Primary Care Provider: Leah Lyman ED Provider: Abner Berry Home Meds and New Rx's Prescriptions: No Action methadone 10 MG/ML concentrate 80 mg PO DAILY metoclopramide HCl [Reglan] 10 mg tablet 10 mg PO Q6H PRNQty: 10 0RF naloxone 4 mg/actuation spray,non-aerosol 1 spray NGOZI ONCE PRN (Reason: overdose) Qty: 2 0RF ibuprofen 600 mg tablet 600 mg PO TID PRN (Reason: pain) Qty: 90 3RF acetaminophen 500 mg tablet 500 mg PO Q6H PRN PRN (Reason: pain) Qty: 90 3RF Medical Decision Making This is a 52-year-old male with a past medical history of hepatitis C, regular IV drug use, previous kidney stones, who presents today for swelling of the lower extremities. Symptoms have been present for the last week or so, but have worsened over the last few days. He admits to achiness in his feet. He denies any recent long trips, surgeries or procedures. He denies any history of blood clots. He states that he does not regularly use for injections in his legs, and he has not used in his legs for the last few months. He denies any chest pain or shortness of breath. He does admit to eating salty foods over the last few days including hot dogs. He denies any previous history of PEs. He denies any known history of congestive heart failure. Symptoms are improved with compression stockings. They are worsened with regular standing which is part of his job. No other complaints at this time. No other modifying factors. Exam demonstrates +2 pitting edema of the lower extremities. No focal calf tenderness. No redness or warmth to suggest infection. Differential is highest for mild CHF. DVT less likely. We will start with a D-dimer. We will give 20 of Lasix, monitor closely and reassess. Patient will be signed out to my colleague for follow-up on labs and imaging potential. 7:23 AM Laboratory work-up is relatively stable. No white count bandemia or left shift. Electrolytes stable. proBNP minimally elevated at 868. Pending D-dimer. Patient will be signed out to my colleague for follow-up on D-dimer and potential ultrasound versus discharge. HPI General Date/Time Provider Initiated Documentation: 09/16/22 06:31 . HPI Narrative: This is a 52-year-old male with a past medical history of hepatitis C, regular IV drug use, previous kidney stones, who presents today for swelling of the lower extremities. Symptoms have been present for the last week or so, but have worsened over the last few days. He admits to achiness in his feet. He denies any recent long trips, surgeries or procedures. He denies any history of blood clots. He states that he does not regularly use for injections in his legs, and he has not used in his legs for the last few months. He denies any chest pain or shortness of breath. He does admit to eating salty foods over the last few days including hot dogs. He denies any previous history of PEs. He denies any known history of congestive heart failure. Symptoms are improved with compression stockings. They are worsened with regular standing which is part of his job. No other complaints at this time. No other modifying factors. Related Data Home Medications Medication Instructions Recorded Confirmed methadone 10 mg/mL oral concentrate 80 mg PO DAILY 07/07/15 09/16/22 naloxone 4 mg/actuation nasal spray 1 spray intranasal ONCE PRN 09/19/18 09/16/22 overdose #2 ea acetaminophen 500 mg tablet 500 mg PO Q6H PRN PRN pain #90 tabs 04/18/21 09/16/22 ibuprofen 600 mg tablet 600 mg PO TID PRN pain #90 tabs 04/18/21 09/16/22 metoclopramide HCl 10 mg tablet 10 mg PO Q6H PRN #10 tabs 05/03/22 09/16/22 (Reglan) Previous Rx's Medication Instructions Recorded naloxone 4 mg/actuation nasal spray 1 spray intranasal ONCE PRN 09/19/18 overdose #2 ea acetaminophen 500 mg tablet 500 mg PO Q6H PRN PRN pain #90 tabs 04/18/21 ibuprofen 600 mg tablet 600 mg PO TID PRN pain #90 tabs 04/18/21 metoclopramide HCl 10 mg tablet 10 mg PO Q6H PRN #10 tabs 05/03/22 (Reglan) Allergies Allergy/AdvReac Type Severity Reaction Status Date / Time codeine Allergy Skin Rash Unverified 05/22/23 06:38 bee stings Allergy Uncoded 09/16/22 06:38 General Stated Complaint: Cellulitis ADALBERTO: 3 Review of Systems All systems reviewed & are unremarkable except as noted in HPI and below PFSH All Active Problems (Updated 09/16/22 @ 07:24 by Abner Berry DO) Edema, peripheral (Acute) Nausea (Acute) Viral illness (Acute) Closed fracture of left wrist (Acute) Medical History Hepatitis C IV drug user Pt. states last use was 04/17/2021 Kidney stones Surgical History Broken jaw Social History Smoking/Tobacco Use Status: Current every day Tobacco Type: cigarettes Smoking risk assessment performed?: Yes Alcohol Intake: former Drug use: Daily Substance use type: marijuana, crack/cocaine, heroin, opiates, IV drugs, prescription drug and other Details: occasional IV drug user - last use heroin 2 weeks ago Details: Baart--methadone IV Drug use Fentanyl last use 04/17/21 dosage unknown Do you feel safe at home: Yes Do you feel safe in your relationship?: Yes Exam Narrative Exam Narrative: 1.Const: Well-nourished, Well-developed, appearing stated age 2.Eyes: PERRL, no conjunctival injection, and symmetrical lids. 3.ENT: Atraumatic external nose and ears. Moist MM. Neck: Symmetric, trachea midline, No thyromegaly. 4.CVS: +S1/S2, No murmurs or gallops. Peripheral pulses 2+ and equal in all extremities. Brisk capillary refill in all extremities. 5.RESP: Unlabored respiratory effort. Clear to auscultation bilaterally. No wheezes rales or rhonchi 6.GI: Soft, Nontender/Nondistended, No hepatosplenomegaly. No guarding or rebound. 7.MSK: Normocephalic/Atraumatic, Extremities w/o deformity or ttp No cyanosis or clubbing, Normal movement of all extremities. +2 pitting edema of the lower extremities bilaterally. No calf tenderness. No redness or warmth to suggest infection 8.Skin: Warm, Dry. No rashes or lesions. 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 Sensation grossly intact, no focal neurologic deficits. 10.Psych: (AAO) x3. Appropriate mood and affect Course Vital Signs Vital signs: Vital Signs Temperature 37.8 C H 09/16/22 06:30 Pulse 59 L 09/16/22 06:30 Respiratory Rate 20 09/16/22 06:30 Blood Pressure 133/83 09/16/22 06:30 Pulse Oximetry 98 09/16/22 06:30 Temperature 37.8 C H 09/16/22 06:30 Temperature Source Oral 09/16/22 06:30 Pulse 59 L 09/16/22 06:30 Respiratory Rate 20 09/16/22 06:30 Respiratory Effort Normal 09/16/22 06:37 Blood Pressure 133/83 09/16/22 06:30 Blood Pressure Position Sitting 09/16/22 06:30 Pulse Oximetry 98 09/16/22 06:30 Oxygen Delivery Method Room Air 09/16/22 06:30 Oxygen Flow Rate 0 09/16/22 06:30
[2022-09-16] MEDS: Furosemide 20 MG/2 ML VIAL IVP (06:44)
[2022-09-16 06:55] LABS: Abs Immature Grans 0.01 10^3/uL (0.0-0.06); Absolute Basophil Count 0.01 10^3/uL (0.0-0.2); Absolute Eosinophil Count 0.14 10^3/uL (0.0-0.7); Absolute Lymphocyte Count 1.65 10^3/uL (1.2-3.4); Absolute Monocyte Count 0.45 10^3/uL (0.1-0.8); Basophils % 0.2; Eosinophils % 2.8; HCT 44.7 % (40.0-50.0); HGB 14.9 g/dL (13.5-17.5); Immature Grans % 0.2; Lymphocytes % 32.6; MCH 29.5 pg (27.0-33.0); MCHC 33.3 % (32.0-36.0); MCV 89 fL (80-95); MPV 9.1 fL (8.0-11.0); Monocytes % 8.9; Neutrophils % 55.3; Platelet Count 203 10^3/uL (130-400); RBC 5.05 10^6/uL (4.36-5.78); RDW-SD 38.8 fL; WBC 5.06 10^3/uL (4.4-10.8)
[2022-09-16 07:20] LABS: ALT 46 U/L (16-63); AST 38 U/L (15-37); Albumin 3.5 g/dL (3.4-5.0); Alkaline Phosphatase 100 U/L (46-116); Anion Gap 5.1 mmol/L (3-11); BUN 11 mg/dL (7-18); Bilirubin, Total 0.3 mg/dL (0.2-1.0); CO2 31.9 mmol/L (21.0-32.0); CREATININE 0.9 mg/dL (0.70-1.30); Calcium 9.1 mg/dL (8.5-10.1); Chloride 105 mmol/L (98-107); Estimated GFR 104.05 (mL/min/1.73m2); Glucose 110 mg/dL (74-106); NT-proBNP 868 pg/mL (<300); Potassium 3.6 mmol/L (3.5-5.1); Sodium 142 mmol/L (136-145); Total Protein 7.7 g/dL (6.4-8.2)
[2022-09-16 07:30] LABS: D-Dimer 357 ng/mlFEU (<500)
[2022-09-16 07:35] VITALS: BP 123/75; PULSE 50; RESP 16; TEMP 37.2; O2SAT 97
[2022-09-16 07:54] VITALS: BP 118/80; PULSE 54; RESP 15; O2SAT 99
[2022-09-16] MEDS: Furosemide 20 MG TAB 40 MG PO (07:55)
== END 2022-09-16 07:56 | disposition home or self-care (01) ==
PROVIDERS: Emergency Provider Student in an Organized Health Care Education/Training Program; PCP Nurse Practitioner Family
DX: R60.9 Edema, unspecified (principal); F11.20 Opioid dependence, uncomplicated; B19.20 Unspecified viral hepatitis C without hepatic coma; Z87.442 Personal history of urinary calculi
CPT/HCPCS: 80053; 96374; 99284; 83880; 85025; 85379; J1941

== ENCOUNTER 2023-05-09 14:29 | Emergency (ER) | payer MEDICAID, SELFPAY ==
[2023-05-09 14:30] VITALS: BP 166/105; PULSE 71; RESP 16; TEMP 36.4; O2SAT 97
--- NOTE | 2023-05-09 15:24 | W.ED.GENAD ---
HPI General Stated Complaint: Laceration ADALBERTO: 4 Date/Time Provider Initiated Documentation: 05/09/23 14:38. HPI Narrative: 53-year-old male presents for evaluation of finger laceration and ear pain. Patient states that he cut the tip of his left thumb with a serrated knife prior to arrival. Unsure date of last tetanus vaccination. No numbness or tingling. Bleeding is well-controlled. In addition patient states that he has been having ongoing trouble with his right ear he feels that something is moving in there. Related Data Home Medications Medication Instructions Recorded Confirmed methadone 10 mg/mL oral concentrate 80 mg PO DAILY 07/07/15 05/09/23 naloxone 4 mg/actuation nasal spray 1 spray intranasal ONCE PRN 09/19/18 05/09/23 overdose #2 ea acetaminophen 500 mg tablet 500 mg PO Q6H PRN PRN pain #90 tabs 04/18/21 05/09/23 ibuprofen 600 mg tablet 600 mg PO TID PRN pain #90 tabs 04/18/21 05/09/23 metoclopramide HCl 10 mg tablet 10 mg PO Q6H PRN #10 tabs 05/03/22 05/09/23 (Reglan) carbamide peroxide 6.5 % ear drops 5 drp otic (ear) DAILY 4 days #15 05/09/23 (Debrox) mL Previous Rx's Medication Instructions Recorded naloxone 4 mg/actuation nasal spray 1 spray intranasal ONCE PRN 09/19/18 overdose #2 ea acetaminophen 500 mg tablet 500 mg PO Q6H PRN PRN pain #90 tabs 04/18/21 ibuprofen 600 mg tablet 600 mg PO TID PRN pain #90 tabs 04/18/21 metoclopramide HCl 10 mg tablet 10 mg PO Q6H PRN #10 tabs 05/03/22 (Reglan) carbamide peroxide 6.5 % ear drops 5 drp otic (ear) DAILY 4 days #15 05/09/23 (Debrox) mL Allergies Allergy/AdvReac Type Severity Reaction Status Date / Time codeine Allergy Skin Rash Unverified 05/09/23 14:34 bee stings Allergy Uncoded 05/09/23 14:34 Review of Systems Narrative: Remainder of review of systems otherwise negative except as in the HPI x 5. PFSH All Active Problems Finger laceration (Acute) Cerumen impaction (Acute) Nausea (Acute) Viral illness (Acute) Closed fracture of left wrist (Acute) Medical History IV drug user Pt. states last use was 04/17/2021 Kidney stones Hepatitis C Surgical History Broken jaw Social History Smoking/Tobacco Use Status: Current every day Tobacco Type: cigarettes Smoking risk assessment performed?: Yes Alcohol Intake: former Drug use: Daily Substance use type: marijuana, crack/cocaine, opiates and other Details: occasional IV drug user - last use heroin 2 weeks ago Details: [facility] patient--methadone. Uses Cocaine and Fent. 3x/week. MgRN 05/09/22 Do you feel safe at home: Yes Do you feel safe in your relationship?: Yes Exam Narrative Exam Narrative: General: non-toxic, no respiratory distress, comfortable HEENT: normocephalic, atraumatic, lids and lashes normal, PERRL, EOMI, anicteric sclera, no conjunctival injection, cerumen impaction left ear, moist oral mucosa Musculoskeletal: 0.5 cm laceration to lateral tip of left finger, no active bleeding, no nail injury, otherwise full range of motion of arms and legs, no tenderness to palpation. no clubbing, cyanosis, or edema Neurologic: appropriate for age, strength normal Psych: alert and oriented Skin: as above, otherwise no petechiae, no lesions, warm and dry Course Vital Signs Vital signs: Vital Signs Temperature 36.4 C L 05/09/23 14:30 Pulse 71 05/09/23 14:30 Respiratory Rate 16 05/09/23 14:30 Blood Pressure 166/105 H 05/09/23 14:30 Pulse Oximetry 97 05/09/23 14:30 Temperature 36.4 C L 05/09/23 14:30 Temperature Source Temporal Artery Scan 05/09/23 14:30 Pulse 71 05/09/23 14:30 Respiratory Rate 16 05/09/23 14:30 Respiratory Effort Normal, Non-Labored 05/09/23 14:36 Blood Pressure 166/105 H 05/09/23 14:30 Pulse Oximetry 97 05/09/23 14:30 Procedures Laceration Laceration 1: Site: upper extremity (Left thumb) Side (If applicable): left Size (cm): 0.5 Description: linear Depth: simple, single layer Skin layer closed with: other (Surgical glue) Medical Decision Making 53 year-old male with finger laceration. Tetanus will be updated. Wound was soaked and washed by nursing. There is no gaping laceration. No active bleeding. A small amount of surgical glue was applied to the area. His right ear has cerumen impaction. He will be prescribed Debrox. He was given instructions on wound care. Quality:SDOH Health Related Social Needs: No Data to Display Discharge Plan Disposition Patient Disposition: Home Condition: Stable Discharge Details Clinical Impression: Cerumen impaction, Finger laceration Primary Care Provider: Leah Lyman ED Provider: Emelyn Rodriguez Home Meds and New Rx's Prescriptions: New Debrox 6.5 % drops 5 drp otic (ear) DAILY 4 Days Qty: 15 0RF No Action methadone 10 MG/ML concentrate 80 mg PO DAILY metoclopramide HCl [Reglan] 10 mg tablet 10 mg PO Q6H PRNQty: 10 0RF naloxone 4 mg/actuation spray,non-aerosol 1 spray NGOZI ONCE PRN (Reason: overdose) Qty: 2 0RF ibuprofen 600 mg tablet 600 mg PO TID PRN (Reason: pain) Qty: 90 3RF acetaminophen 500 mg tablet 500 mg PO Q6H PRN PRN (Reason: pain) Qty: 90 3RF Discharge Instructions Instructions: Diphtheria/Acellular Pertussis/Tetanus Vaccine (By injection), Impactaci?n de Cerumen (ED), Finger Laceration (ED) Additional Instructions: Use Debrox to soften wax in right ear. You may irrigate in the shower. Referrals: Leah Lyman [Primary Care Provider] - Discharge Data Discharge Physician: Emelyn Rodriguez
== END 2023-05-09 15:45 | disposition home or self-care (01) ==
PROVIDERS: Emergency Provider Emergency Medicine Emergency Medical Services; PCP Nurse Practitioner Family
DX: S61.012A Laceration without foreign body of left thumb without damage to nail, initial encounter (principal); W26.0XXA Contact with knife, initial encounter; H92.01 Otalgia, right ear; H61.21 Impacted cerumen, right ear
CPT/HCPCS: 12001; 90471; 99284; 99283

== ENCOUNTER 2023-05-28 09:50 | Emergency (ER) | payer MEDICAID, SELFPAY ==
[2023-05-28 09:54] VITALS: BP 162/92; PULSE 102; RESP 22; TEMP 37.1
--- NOTE | 2023-05-28 10:15 | DI.RAD_ITS ---
Exam(s) XR CHEST 2V PA LATERAL EXAM: XR CHEST 2V PA LATERAL CLINICAL HISTORY: fever, cxr TECHNIQUE: 2D digital imaging was performed of the chest. Two images were obtained. PA and lateral views were obtained. COMPARISON: CR XR CHEST 2V PA LATERAL from 09/19/2018 FINDINGS: MEDIASTINUM: Normal. HEART: Normal. PULMONARY VASCULATURE: Normal. LUNGS: Clear. PLEURAL SPACE: No pleural effusion or pneumothorax. BONE:Within normal limits for the patient's age. OTHER FINDINGS:Normal. IMPRESSION: No acute pulmonary findings. DATA REPOSITORY: RADIATION DOSE DELIVERED:
--- NOTE | 2023-05-28 10:42 | ED.GENADUL_ITS ---
HPI General Date/Time Provider Initiated Documentation: 05/28/23 10:14 . HPI Narrative: This 53-year-old male presents with report of upper respiratory symptoms for the past week, cough, productive, feels tired and having chills. Denies any chest discomfort. Patient states that numerous sick contacts at work. Denies any shortness of breath. Does continue to use IV drugs, denies again any chest pain or shortness of breath. Denies any calf pain or swelling, recent flights, surgeries, long drives, sick for approximately a week. Does smoke tobacco. Denies known history of COPD. Related Data Home Medications Medication Instructions Recorded Confirmed methadone 10 mg/mL oral concentrate 80 mg PO DAILY 07/07/15 05/28/23 naloxone 4 mg/actuation nasal spray 1 spray intranasal ONCE PRN 09/19/18 05/28/23 overdose #2 ea acetaminophen 500 mg tablet 500 mg PO Q6H PRN PRN pain #90 tabs 04/18/21 05/28/23 ibuprofen 600 mg tablet 600 mg PO TID PRN pain #90 tabs 04/18/21 05/28/23 metoclopramide HCl 10 mg tablet 10 mg PO Q6H PRN #10 tabs 05/03/22 05/28/23 (Reglan) albuterol sulfate 90 mcg/actuation 2 puff inhalation Q6H PRN #6.7 05/28/23 aerosol inhaler (Ventolin HFA) grams doxycycline hyclate 100 mg capsule 100 mg PO BID #14 caps 05/28/23 inhalational spacing device #1 ea 05/28/23 (BreatheRite MDI Spacer) Previous Rx's Medication Instructions Recorded naloxone 4 mg/actuation nasal spray 1 spray intranasal ONCE PRN 09/19/18 overdose #2 ea acetaminophen 500 mg tablet 500 mg PO Q6H PRN PRN pain #90 tabs 04/18/21 ibuprofen 600 mg tablet 600 mg PO TID PRN pain #90 tabs 04/18/21 metoclopramide HCl 10 mg tablet 10 mg PO Q6H PRN #10 tabs 05/03/22 (Reglan) albuterol sulfate 90 mcg/actuation 2 puff inhalation Q6H PRN #6.7 05/28/23 aerosol inhaler (Ventolin HFA) grams doxycycline hyclate 100 mg capsule 100 mg PO BID #14 caps 05/28/23 inhalational spacing device #1 ea 05/28/23 (BreatheRite MDI Spacer) Allergies Allergy/AdvReac Type Severity Reaction Status Date / Time codeine Allergy Skin Rash Unverified 05/28/23 09:57 bee stings Allergy Uncoded 05/28/23 09:57 General Stated Complaint: RespSymp ADALBERTO: 3 Course Vital Signs Vital signs: Vital Signs Temperature 37.1 C 05/28/23 09:54 Pulse 102 H 05/28/23 09:54 Respiratory Rate 22 05/28/23 09:54 Blood Pressure 162/92 H 05/28/23 09:54 Temperature 37.1 C 05/28/23 09:54 Temperature Source Oral 05/28/23 09:54 Pulse 102 H 05/28/23 09:54 Respiratory Rate 22 05/28/23 09:54 Respiratory Effort Normal, Non-Labored 05/28/23 10:02 Respiratory Depth Normal 05/28/23 10:02 Blood Pressure 162/92 H 05/28/23 09:54 Blood Pressure Position Supine 05/28/23 09:54 Oxygen Delivery Method Room Air 05/28/23 09:54 Oxygen Flow Rate 0 05/28/23 09:54 Pain Level 0 05/28/23 09:54 Medical Decision Making This 53-year-old male presents with report of upper respiratory symptoms for the past week. Agreeable to chest x-ray, lungs clear to auscultation, mildly tachycardic, afebrile here, hypertension Nontoxic in appearance, low suspicion clinically for any IV drug related pathology Will start on doxycycline given history of tobacco use with persistence of symptoms and malaise Chest x-ray per radiology interpretation my review does not show evidence of acute abnormality Patient is flu, COVID, and RSV negative Return precautions reviewed and patient expressed understanding Quality:SDOH Health Related Social Needs: No Data to Display PFSH All Active Problems (Updated 05/28/23 @ 10:47 by MATTHIAS Hurst) Bronchitis (Acute) Bronchitis (Acute) Finger laceration (Acute) Cerumen impaction (Acute) Nausea (Acute) Viral illness (Acute) Closed fracture of left wrist (Acute) Medical History IV drug user Pt. states last use was 04/17/2021 Kidney stones Hepatitis C Surgical History Broken jaw Social History Smoking/Tobacco Use Status: Current every day Tobacco Type: cigarettes Smoking risk assessment performed?: Yes Alcohol Intake: former Drug use: Daily Substance use type: marijuana, crack/cocaine, opiates and other Details: occasional IV drug user - last use heroin 2 weeks ago Details: [facility] patient--methadone. Uses Cocaine and Fent. 3x/week. Mg,RN 05/09/22 Housing: apartment Do you feel safe at home: Yes Do you feel safe in your relationship?: Yes Discharge Plan Disposition Patient Disposition: Home Discharge Details Clinical Impression: Bronchitis Primary Care Provider: Leah Lyman ED Provider: Anne Oneal Home Meds and New Rx's Prescriptions: New doxycycline hyclate 100 mg capsule 100 mg PO BID Qty: 14 0RF albuterol sulfate [Ventolin HFA] 90 mcg/actuation HFA aerosol inhaler 2 puff inhalation Q6H PRNQty: 6.7 0RF (DME) BreatheRite MDI Spacer Spacer See Rx Instructions .Route Qty: 1 0RF Rx Instructions: As directed Continued methadone 10 MG/ML concentrate 80 mg PO DAILY metoclopramide HCl [Reglan] 10 mg tablet 10 mg PO Q6H PRNQty: 10 0RF naloxone 4 mg/actuation spray,non-aerosol 1 spray NGOZI ONCE PRN (Reason: overdose) Qty: 2 0RF ibuprofen 600 mg tablet 600 mg PO TID PRN (Reason: pain) Qty: 90 3RF acetaminophen 500 mg tablet 500 mg PO Q6H PRN PRN (Reason: pain) Qty: 90 3RF Discharge Instructions Instructions: Upper Respiratory Infection (ED) Additional Instructions: take antibiotic as prescribed use inhaler 2 puffs every 4-6 hours as needed for cough, wheeze, shortness of breath motrin/tylenol for fever control return earlier should you have new or worsening complaints Stand Alone Forms: Work Release Referrals: Leah Lyman [Primary Care Provider] - Discharge Data Discharge Date/Time-TO BE ENTERED AT DEPARTURE: 05/28/23 10:56
[2023-05-28] MEDS: Ibuprofen 600 MG TAB PO (10:54)
[2023-05-28 10:57] LABS: COVID-19 PCR Negative (Negative); Influenza A PCR Negative (Negative); Influenza B PCR Negative (Negative); RSV PCR Negative (Negative)
[2023-05-28 10:59] LABS: Source Nasopharynx
== END 2023-05-28 10:56 | disposition home or self-care (01) ==
PROVIDERS: Emergency Provider Physician Assistant; PCP Nurse Practitioner Family
DX: J40 Bronchitis, not specified as acute or chronic (principal); Z11.52 Encounter for screening for COVID-19; F17.210 Nicotine dependence, cigarettes, uncomplicated
CPT/HCPCS: 87637; 99283; 71046

== ENCOUNTER 2023-11-19 06:18 | Emergency (ER) | payer MEDICAID, SELFPAY ==
[2023-11-19 06:20] VITALS: BP 136/91; PULSE 59; RESP 18; TEMP 36.4; O2SAT 100
--- NOTE | 2023-11-19 06:27 | ED.GENADUL_ITS ---
Discharge Plan Disposition Patient Disposition: Home Condition: Good Discharge Details Clinical Impression: Acute right otitis media Primary Care Provider: Unknown,Unknown ED Provider: Abner Berry Home Meds and New Rx's Prescriptions: New amoxicillin-pot clavulanate 875-125 mg tablet 1 tab PO BID 7 Days Qty: 14 0RF No Action methadone 10 MG/ML concentrate 80 mg PO DAILY metoclopramide HCl [Reglan] 10 mg tablet 10 mg PO Q6H PRNQty: 10 0RF albuterol sulfate [Ventolin HFA] 90 mcg/actuation HFA aerosol inhaler 2 puff inhalation Q6H PRNQty: 6.7 0RF (DME) BreatheRite MDI Spacer Spacer See Rx Instructions .Route Qty: 1 0RF Rx Instructions: As directed naloxone 4 mg/actuation spray,non-aerosol 1 spray NGOZI ONCE PRN (Reason: overdose) Qty: 2 0RF ibuprofen 600 mg tablet 600 mg PO TID PRN (Reason: pain) Qty: 90 3RF acetaminophen 500 mg tablet 500 mg PO Q6H PRN PRN (Reason: pain) Qty: 90 3RF Discharge Instructions Instructions: Ear Infection ED Additional Instructions: At this time you have evidence of a mild ear infection. Please take the antibiotic as directed. Please avoid using any Q-tips in your ear. Please take ibuprofen as needed for pain. If you notice any worsening of your symptoms, or any new symptoms such as vomiting, diarrhea, fever, chills, shortness of breath, chest pain, numbness, weakness, or fainting , please return immediately to the emergency department for reevaluation. Please follow up with your primary care provider as soon as possible for reassessment and reevaluation. As always, it was a pleasure participating in your medical care today. HPI General Date/Time Provider Initiated Documentation: 11/19/23 06:27 . HPI Narrative: This is a pleasant 53-year-old male with a past medical history of previous hepatitis C, previous IV drug use, who presents today for evaluation of right ear pain. Patient states has been going on for the last 2 weeks, but slightly worse over the last few days. He had been using a Q-tip in the ear recently and this did cause mild to moderate pain. He denies any fever or chills. He denies any headache. No other complaint at this time. No other modifying factors. No recent swimming. Related Data Home Medications ?Medication ?Instructions ?Recorded ?Confirmed methadone 10 mg/mL oral concentrate 80 mg PO DAILY 07/07/15 11/19/23 naloxone 4 mg/actuation nasal spray 1 spray intranasal ONCE PRN 09/19/18 11/19/23 overdose #2 ea acetaminophen 500 mg tablet 500 mg PO Q6H PRN PRN pain #90 tabs 04/18/21 11/19/23 ibuprofen 600 mg tablet 600 mg PO TID PRN pain #90 tabs 04/18/21 11/19/23 metoclopramide HCl 10 mg tablet 10 mg PO Q6H PRN #10 tabs 05/03/22 11/19/23 (Reglan) albuterol sulfate 90 mcg/actuation 2 puff inhalation Q6H PRN #6.7 05/28/23 11/19/23 aerosol inhaler (Ventolin HFA) grams inhalational spacing device #1 ea 05/28/23 11/19/23 (BreatheRite MDI Spacer) amoxicillin 875 mg-potassium 1 tab PO BID 7 days #14 tabs 11/19/23 clavulanate 125 mg tablet Previous Rx's ?Medication ?Instructions ?Recorded naloxone 4 mg/actuation nasal spray 1 spray intranasal ONCE PRN 09/19/18 overdose #2 ea acetaminophen 500 mg tablet 500 mg PO Q6H PRN PRN pain #90 tabs 04/18/21 ibuprofen 600 mg tablet 600 mg PO TID PRN pain #90 tabs 04/18/21 metoclopramide HCl 10 mg tablet 10 mg PO Q6H PRN #10 tabs 05/03/22 (Reglan) albuterol sulfate 90 mcg/actuation 2 puff inhalation Q6H PRN #6.7 05/28/23 aerosol inhaler (Ventolin HFA) grams inhalational spacing device #1 ea 05/28/23 (BreatheRite MDI Spacer) amoxicillin 875 mg-potassium 1 tab PO BID 7 days #14 tabs 11/19/23 clavulanate 125 mg tablet Allergies Allergy/AdvReac Type Severity Reaction Status Date / Time codeine Allergy Skin Rash Unverified 11/19/23 06:24 bee stings Allergy Anaphylaxis Uncoded 11/19/23 06:24 General Stated Complaint: EarProblem ADALBERTO: 4 Review of Systems All systems reviewed & are unremarkable except as noted in HPI and below Exam Narrative Exam Narrative: 1.Const: Well-nourished, Well-developed, appearing stated age 2.Eyes: PERRL, no conjunctival injection, and symmetrical lids. 3.ENT: Atraumatic external nose and ears. Moist MM. Neck: Symmetric, trachea midline, No thyromegaly. Mild erythema on the right otic canal, mild induration and erythema and slight effusion behind the right tympanic membrane. No drainage or discharge. No mastoid tenderness. Left tympanic membrane and posterior oropharynx unremarkable. 4.CVS: +S1/S2, No murmurs or gallops. Peripheral pulses 2+ and equal in all extremities. Brisk capillary refill in all extremities. 5.RESP: Unlabored respiratory effort. Clear to auscultation bilaterally. No wheezes rales or rhonchi 6.GI: Soft, Nontender/Nondistended, No hepatosplenomegaly. No guarding or rebound. 7.MSK: Normocephalic/Atraumatic, Extremities w/o deformity or ttp No cyanosis or clubbing, Normal movement of all extremities 8.Skin: Warm, Dry. No rashes or lesions. 9.Neuro: theatre director II-XII grossly intact. Sensation grossly intact, no focal neurologic deficits. 10.Psych: (AAO) x3. Appropriate mood and affect Course Vital Signs Vital signs: Vital Signs Temperature 36.4 C L 11/19/23 06:20 Pulse 59 L 11/19/23 06:20 Respiratory Rate 18 11/19/23 06:20 Blood Pressure 136/91 H 11/19/23 06:20 Pulse Oximetry 100 11/19/23 06:20 Temperature 36.4 C L 11/19/23 06:20 Temperature Source Temporal Artery Scan 11/19/23 06:20 Pulse 59 L 11/19/23 06:20 Respiratory Rate 18 11/19/23 06:20 Respiratory Effort Normal, Non-Labored 11/19/23 06:23 Blood Pressure 136/91 H 11/19/23 06:20 Blood Pressure Position Sitting 11/19/23 06:20 Pulse Oximetry 100 11/19/23 06:20 Oxygen Delivery Method Room Air 11/19/23 06:20 Oxygen Flow Rate 0 11/19/23 06:20 Pain Level 3 11/19/23 06:25 Medical Decision Making This is a pleasant 53-year-old male with a past medical history of previous hepatitis C, previous IV drug use, who presents today for evaluation of right ear pain. Patient states has been going on for the last 2 weeks, but slightly worse over the last few days. He had been using a Q-tip in the ear recently and this did cause mild to moderate pain. He denies any fever or chills. He denies any headache. No other complaint at this time. No other modifying factors. No recent swimming. Exam demonstrates very mild right-sided otitis media, no evidence of otitis externa. Will give Augmentin for home use prescription. Recommend ibuprofen and avoidance of Tylenol secondary to history of hepatitis C. Discussed red flags for which to return. No evidence of perforation, cholesteatoma or other abnormality otherwise. I have extensively reviewed the treatment plan and discharge instructions with the patient. I have addressed all patient concerns at this time. The patient was made aware of what symptoms to monitor for that would warrant a return to the emergency department. Discussed the plan with the patient, they demonstrate verbal understanding and agreement with our assessment and plan at this time. The documentation in this chart was dictated using [employer] dictation software. Please excuse any dictation errors. Quality:SDOH Health Related Social Needs: No Data to Display PFSH All Active Problems Acute right otitis media (Acute) Bronchitis (Acute) Nausea (Acute) Viral illness (Acute) Closed fracture of left wrist (Acute) Medical History IV drug user Pt. states last use was 04/17/2021 Kidney stones Hepatitis C Surgical History Broken jaw Social History Smoking/Tobacco Use Status: Current every day Tobacco Type: cigarettes Smoking risk assessment performed?: Yes Alcohol Intake: former Drug use: Daily Substance use type: marijuana, crack/cocaine, opiates and other Details: occasional IV drug user - last use heroin 2 weeks ago Details: [facility] patient--methadone. Uses Cocaine and Fent. 3x/week. Mg,RN 05/09/22 Housing: apartment Do you feel safe at home: Yes Do you feel safe in your relationship?: Yes
== END 2023-11-19 06:38 | disposition home or self-care (01) ==
PROVIDERS: Emergency Provider Student in an Organized Health Care Education/Training Program
DX: H66.91 Otitis media, unspecified, right ear (principal)
CPT/HCPCS: 99283

== ENCOUNTER 2025-01-10 14:58 | Emergency (ER) | payer SELFPAY ==
[2025-01-10 15:03] VITALS: BP 135/97; PULSE 107; RESP 18; TEMP 37; O2SAT 92
[2025-01-10 15:41] VITALS: PULSE 74; RESP 18; O2SAT 97
--- NOTE | 2025-01-11 11:49 | W.EDPROG ---
Date of service: 01/11/25 Time of Service: 11:49 Medical Decision Making This patient return to the emergency department during my shift. He was diagnosed yesterday with a cellulitis of his nose. He is requesting a work note which I provided. Discharge Plan Disposition Patient Disposition: Home Condition: Stable Discharge Details Clinical Impression: Nose cellulitis Primary Care Provider: Unknown,Unknown ED Provider: Anne Oneal Home Meds and New Rx's Prescriptions: New mupirocin [Centany] 2 % ointment 1 applic topical BID Qty: 22 0RF cephalexin 500 mg tablet 500 mg PO Q6H 7 Days Qty: 28 0RF Continued methadone 10 MG/ML concentrate 80 mg PO DAILY metoclopramide HCl [Reglan] 10 mg tablet 10 mg PO Q6H PRNQty: 10 0RF albuterol sulfate [Ventolin HFA] 90 mcg/actuation HFA aerosol inhaler 2 puff inhalation Q6H PRNQty: 6.7 0RF (DME) BreatheRite MDI Spacer Spacer See Rx Instructions .Route Qty: 1 0RF Rx Instructions: As directed naloxone 4 mg/actuation spray,non-aerosol 1 spray NGOZI ONCE PRN (Reason: overdose) Qty: 2 0RF ibuprofen 600 mg tablet 600 mg PO TID PRN (Reason: pain) Qty: 90 3RF acetaminophen 500 mg tablet 500 mg PO Q6H PRN PRN (Reason: pain) Qty: 90 3RF Discharge Instructions Instructions: Cellulitis (Skin Infection), Adult ED Additional Instructions: Apply mupirocin ointment to your nose twice a day with a Q-tip for the next 7 days Take the antibiotic as prescribed orally Take Motrin and Tylenol as needed for pain Recheck in 48 hours with PCP Please return with spreading redness, fever, worsening pain Stand Alone Forms: Work Release Discharge Data Discharge Date/Time-TO BE ENTERED AT DEPARTURE: 01/10/25 15:42
--- NOTE | 2025-01-20 08:04 | W.ED.GENAD ---
Discharge Plan Disposition Patient Disposition: Home Condition: Stable Discharge Details Clinical Impression: Nose cellulitis Primary Care Provider: Unknown,Unknown ED Provider: Anne Oneal Home Meds and New Rx's Prescriptions: New mupirocin [Centany] 2 % ointment 1 applic topical BID Qty: 22 0RF Continued methadone 10 MG/ML concentrate 80 mg PO DAILY metoclopramide HCl [Reglan] 10 mg tablet 10 mg PO Q6H PRNQty: 10 0RF albuterol sulfate [Ventolin HFA] 90 mcg/actuation HFA aerosol inhaler 2 puff inhalation Q6H PRNQty: 6.7 0RF (DME) BreatheRite MDI Spacer Spacer See Rx Instructions .Route Qty: 1 0RF Rx Instructions: As directed naloxone 4 mg/actuation spray,non-aerosol 1 spray NGOZI ONCE PRN (Reason: overdose) Qty: 2 0RF ibuprofen 600 mg tablet 600 mg PO TID PRN (Reason: pain) Qty: 90 3RF acetaminophen 500 mg tablet 500 mg PO Q6H PRN PRN (Reason: pain) Qty: 90 3RF Discharge Instructions Instructions: Cellulitis (Skin Infection), Adult ED Additional Instructions: Apply mupirocin ointment to your nose twice a day with a Q-tip for the next 7 days Take Motrin and Tylenol as needed for pain Recheck in 48 hours with PCP Please return with spreading redness, fever, worsening pain Stand Alone Forms: Work Release Discharge Data Discharge Date/Time-TO BE ENTERED AT DEPARTURE: 01/10/25 15:42 HPI General Date/Time Provider Initiated Documentation: 01/10/25 15:23. HPI Narrative: This 54-year-old male presents with pain and redness to right knee onset 3 days ago. Denies any additional injuries. Denies any fevers or chills. Denies any pain to facial region or periorbital region of eye. Denies any trauma. Denies history of recent injection into the area or history of diabetes. Related Data Home Medications ?Medication ?Instructions ?Recorded ?Confirmed methadone 10 mg/mL oral concentrate 80 mg PO DAILY 07/07/15 01/10/25 naloxone 4 mg/actuation nasal spray 1 spray intranasal ONCE PRN 09/19/18 01/10/25 overdose #2 ea acetaminophen 500 mg tablet 500 mg PO Q6H PRN PRN pain #90 tabs 04/18/21 01/10/25 ibuprofen 600 mg tablet 600 mg PO TID PRN pain #90 tabs 04/18/21 01/10/25 metoclopramide HCl 10 mg tablet 10 mg PO Q6H PRN #10 tabs 05/03/22 01/10/25 (Reglan) albuterol sulfate 90 mcg/actuation 2 puff inhalation Q6H PRN #6.7 05/28/23 01/10/25 aerosol inhaler (Ventolin HFA) grams inhalational spacing device #1 ea 05/28/23 01/10/25 (BreatheRite MDI Spacer) mupirocin 2 % topical ointment 1 applic topical BID #22 grams 01/10/25 (Centany) Previous Rx's ?Medication ?Instructions ?Recorded naloxone 4 mg/actuation nasal spray 1 spray intranasal ONCE PRN 09/19/18 overdose #2 ea acetaminophen 500 mg tablet 500 mg PO Q6H PRN PRN pain #90 tabs 04/18/21 ibuprofen 600 mg tablet 600 mg PO TID PRN pain #90 tabs 04/18/21 metoclopramide HCl 10 mg tablet 10 mg PO Q6H PRN #10 tabs 05/03/22 (Reglan) albuterol sulfate 90 mcg/actuation 2 puff inhalation Q6H PRN #6.7 05/28/23 aerosol inhaler (Ventolin HFA) grams inhalational spacing device #1 ea 05/28/23 (BreatheRite MDI Spacer) mupirocin 2 % topical ointment 1 applic topical BID #22 grams 01/10/25 (Centany) Allergies Allergy/AdvReac Type Severity Reaction Status Date / Time codeine Allergy Skin Rash Unverified 01/10/25 15:06 bee stings Allergy Anaphylaxis Uncoded 01/10/25 15:06 General Stated Complaint: FacialProb ADALBERTO: 4 Exam Narrative Exam Narrative: Right naris with some redness and swelling along the septal aspect and external nostril, no palpable abscess no drainage no fluctuance no maxillary tenderness on affected side extraocular's muscles intact no crepitus Course Vital Signs Vital signs: Vital Signs Temperature 37.0 C 01/10/25 15:03 Pulse 107 H 01/10/25 15:03 Respiratory Rate 18 01/10/25 15:03 Blood Pressure 135/97 H 01/10/25 15:03 Pulse Oximetry 92 01/10/25 15:03 Temperature 37.0 C 01/10/25 15:03 Temperature Source Oral 01/10/25 15:03 Pulse 74 01/10/25 15:41 Respiratory Rate 18 01/10/25 15:41 Blood Pressure 135/97 H 01/10/25 15:03 Pulse Oximetry 97 01/10/25 15:41 Oxygen Delivery Method Room Air 01/10/25 15:03 Oxygen Flow Rate 0 01/10/25 15:03 Pain Level 4 01/10/25 15:41 Medical Decision Making Alert and oriented 54-year-old male in no acute distress with suspected cellulitis in right nare, will prescribe mupirocin and encourage patient to wash with soap and water daily warm compresses is much as tolerated return precautions reviewed and patient expressed understanding PFSH All Active Problems (Updated 01/10/25 @ 15:29 by MATTHIAS Hurst) Nose cellulitis (Acute) Bronchitis (Acute) Nausea (Acute) Viral illness (Acute) Closed fracture of left wrist (Acute) Medical History IV drug user Pt. states last use was 04/17/2021 Kidney stones Hepatitis C Surgical History Broken jaw Social History Smoking/Tobacco Use Status: Current every day Tobacco Type: cigarettes Smoking risk assessment performed?: Yes Alcohol Intake: former Drug use: Daily Substance use type: marijuana, crack/cocaine, opiates and other Details: occasional IV drug user - last use heroin 2 weeks ago Details: [facility] patient--methadone. Uses Cocaine and Fent. 3x/week. MgRN 05/09/22 Housing: apartment Do you feel safe at home: Yes Do you feel safe in your relationship?: Yes
== END 2025-01-10 15:42 | disposition home or self-care (01) ==
LOC: ER 15:37
PROVIDERS: Emergency Provider Physician Assistant
DX: J34.0 Abscess, furuncle and carbuncle of nose (principal); F17.210 Nicotine dependence, cigarettes, uncomplicated
CPT/HCPCS: 00123; 99283